=== PATIENT | female | born 1990 | race Caucasian/White ===

== ENCOUNTER 2018-08-09 21:34 | Emergency (ER) | payer OTHER, SELFPAY ==
[2018-08-09 21:49] VITALS: BP 121/86; PULSE 72; RESP 18; TEMP 36.6; O2SAT 100; BMI 29.2
--- NOTE | 2018-08-09 22:16 | ED_ITS ---
HPI - Pediatric GI General Chief Complaint: Abdominal Pain Stated Complaint: RIGHT SIDE ABD PAIN NAUSEA Time Seen by Provider: 08/09/18 22:16 Source: patient Mode of arrival: ambulatory Limitations: no limitations History of Present Illness HPI narrative: Patient is a 28 year old female. Several weeks ago she underwent a laparoscopic appendectomy for acute appendicitis this is performed at an outside hospital. She states that her right lower quadrant pain from that episode completely resolved. She had a follow-up with the general surgery service. She states that within the past couple days the right lower quadrant abdominal pain which brought her to the hospital that led to the diagnosis of appendicitis returned. She went to the same hospital were she had surgery earlier today where she had lab work drawn. She stated that they discuss repeating a CT scan however she felt uncomfortable with the provider that she was seeing because she stated that the provider told her that there was uncertainty as to whether not she actually had appendicitis. She did not get the CT scan performed at that facility. She was discharged home she came to this ER for further evaluation. Related Data Allergies Allergy/AdvReac Type Severity Reaction Status Date / Time No Known Drug Allergies Allergy Verified 08/09/18 21:54 Pediatric Review of Systems Constitutional: Denies fever Cardiovascular: Denies chest pain Gastrointestinal: Reports abdominal pain; Denies diarrhea and constipation Genitourinary: Denies dysuria Integumentary: Denies rash Neurological: Denies headache Hematological/Lymphatic: Denies easy bleeding and easy bruising PFSH Medical History Healthy adult (Acute) Surgical History Hx of appendectomy (Acute) Social History Smoking Status: Never smoker Pediatric Exam Initial Vital Signs Initial Vital Signs: Vital Signs Temperature 97.8 F 08/09/18 21:49 Pulse Rate 72 08/09/18 21:49 Respiratory Rate 18 08/09/18 21:49 Blood Pressure 121/86 08/09/18 21:49 Pulse Oximetry 100 08/09/18 21:49 General Limitations: no limitations General appearance: well-appearing, well-hydrated, well-nourished and ill- appearing Head Head exam: normocephalic and atraumatic Respiratory Respiratory exam: Present normal lung sounds bilaterally Cardiovascular Cardiovascular exam: Present regular rate and normal rhythm Abdominal Exam Abdominal exam: Present soft and tenderness; Absent distention Abdominal tenderness: Present RLQ Skin Skin exam: Present warm, dry and intact Expanded Skin Exam Type of lesion: Absent rash Course Orders Ordered: ED Orders 08/09/18 22:44 CT abdomen pelvis w con Stat 08/09/18 22:50 Complete Blood Count AUTO DIFF Stat Comprehensive Metabolic Panel Stat Lipase Stat Test Serum,Qual Stat Discontinued Medications Sodium Chloride (Normal Saline 0.9%) 1,000 mls @ 1,000 mls/hr IV BOLUS ONE Stop: 08/09/18 23:42 Last Infusion: 08/10/18 00:54 Dose: 0 mls/hr Admin: 08/09/18 23:48 Dose: 1,000 mls/hr Vital Signs - 8 hr 08/09/18 21:49 08/09/18 23:00 08/10/18 00:00 Temperature 97.8 F Pulse Rate 72 64 67 Respiratory Rate 18 13 18 Blood Pressure 121/86 Blood Pressure [Left Arm] 102/69 122/64 Pulse Oximetry 100 96 100 08/10/18 00:55 Temperature 96.4 F L Pulse Rate 65 Respiratory Rate 18 Blood Pressure 118/64 Blood Pressure [Left Arm] Pulse Oximetry 100 Medical Decision Making Medical Records Medical records reviewed: Yes I reviewed the patient's medical records. Lab Data Lab results reviewed: Yes I reviewed the patient's lab results. Result diagrams: 08/09/18 22:50 08/09/18 22:50 Lab Results 08/09/18 08/09/18 08/09/18 Range/Units 22:50 22:50 22:50 WBC 6.5 (4.5-11.0) X10^3/uL RBC 4.49 (4.0-5.2) X10^6/uL Hgb 12.9 (12.0-16.0) g/dL Hct 37.8 (36-46) % MCV 84.2 (80-100) fL MCH 28.7 (26-34) PG MCHC 34.2 (30-36) % RDW 13.0 (11.6-14.8) % Plt Count 271 (150-400) X10^3/uL Neut % (Auto) 47.8 L (50-75) % Lymph % (Auto) 42.4 H (25-40) % [place] % (Auto) 6.4 (3-14) % Eos % (Auto) 2.3 (2-4) % Baso % (Auto) 1.1 (0-2) % Neut # (Auto) 3100 (4873-5905) /uL Sodium 140 (137-145) mmol/L Potassium 3.9 (3.4-5.1) mmol/L Chloride 105 (98-107) mmol/L Carbon Dioxide 24 (22-32) mmol/L BUN 12 (7-17) mg/dL Creatinine 0.70 (0.52-1.04) mg/dL Estimated GFR > 60.0 (>60) mL/min BUN/Creatinine Ratio 17.1 (6-22) Glucose 89 (70-100) mg/dL Calcium 9.0 (8.4-10.2) mg/dL Total Bilirubin 0.8 (0.2-1.3) mg/dL AST 15 (14-36) IU/L ALT 23 (9-52) IU/L Alkaline Phosphatase 37 L (38-126) U/L Total Protein 7.4 (6.3-8.2) g/dL Albumin 4.2 (3.5-5.0) g/dL Globulin 3.2 (1.7-4.1) g/dL Albumin/Globulin Ratio 1.3 (1.0-2.8) Lipase 32 (23-300) U/L Serum , Qual Negative (Negative) Imaging Data CT scan - abdomen: Radiologist's impression: Prominent distal small bowel and colon contents. Mesenteric adenopathy, presumably reactive. No evidence of a significant degree of obstruction or suspicious fluid collection MDM Narrative Medical decision making narrative: Benign abdominal exam. CT scan shows no acute pathology except for mesenteric adenopathy. I was able to obtain the operative note from her appendectomy performed on July 22, 2018. It was recorded this note that visually the patient did have acute appendicitis. I did discuss this with the patient. We did discuss mesenteric adenopathy. There is no indication for antibiotics. No indication for further workup here in the emergency department. She was given return precautions. She expressed understanding and agreement with plan. Discharge Plan Departure Patient Disposition: Home Clinical Impression: Mesenteric adenitis Discharge Date/Time: 08/10/18 00:54 Interventions: ED Discharge Assessment Last Done: 08/10/18 00:55 Instructions: Acute Abdominal Pain Activity Restrictions/Additional Instructions: Findings on the CT scan do not require any antibiotics. Make sure your increasing your fluid intake. Follow up with her medical department. Return to the emergency department for any new or worsening symptoms Stand Alone Forms: Work Release Note
--- NOTE | 2018-08-09 22:44 | DI.CT.S_ITS ---
PROCEDURE: CT ABDOMEN PELVIS W CON INDICATIONS: Right-sided abdominal pain, 17 days post appendectomy TECHNIQUE: After the administration of intravenous contrast, 5 mm thick sections acquired from the diaphragm to the symphysis. 5 mm coronal and sagittal reformats were acquired. For radiation dose reduction, the following was used: automated exposure control, adjustment of mA and/or kV according to patient size. COMPARISON: None. FINDINGS: Image quality: Excellent. ABDOMEN: Lung bases: Lung bases are clear. Heart size is normal. Solid organs: Borderline elongated right hepatic liver lobe, measuring approximately 17.6 cm craniocaudal at the midclavicular line. Gallbladder is unremarkable. Biliary system is non dilated. Pancreas enhances normally. Spleen is normal in size and enhancement. No adrenal nodules. Kidneys demonstrate normal size and enhancement, without hydronephrosis. Peritoneum and bowel: Mildly prominent fluid filled distal small bowel loops, a nonspecific finding. Moderate stool burden throughout the colon. No evidence of small or large bowel obstruction. No free fluid or air. There are postsurgical changes of the cecum consistent with prior appendectomy. No right lower quadrant fluid collection or abscess is identified. Nodes and vessels: Mild mesentery and right lower quadrant adenopathy, which is nonspecific but likely reactive. Aorta and inferior vena cava are normal in size. Miscellaneous: No ventral hernias. PELVIS: Genitourinary: Bladder wall thickness is normal. An intrauterine device is identified within the expected location within the uterus. No abnormal adnexal masses are identified. There is mildly prominent bilateral pelvic vascularity. Miscellaneous: No inguinal hernias or adenopathy. Bones: No acute osseous abnormality. IMPRESSION: 1. Mildly prominent distal small bowel loops and moderate stool burden within the colon, without significant CT evidence of bowel obstruction. 2. Postsurgical changes consistent with prior appendectomy, without CT evidence of postsurgical abscess. Mild right lower quadrant and mesenteric lymphadenopathy is nonspecific but likely reactive. This report is concordant with the overnight [facility] radiology report of Dr. Arely Alfonso. Dictated by: Terrence Barrios M.D. on 08/10/2018 at 8:30 Approved by: Terrence Barrios M.D. on 08/10/2018 at 9:18
[2018-08-09 23:00] VITALS: BP 102/69; PULSE 64; RESP 13; O2SAT 96
[2018-08-09 23:01] LABS: Add Manual Diff / Slide Review NO; Basophils Percent Auto 1.1 % (0-2); Eosinophils Percent Auto 2.3 % (2-4); Hematocrit 37.8 % (36-46); Hemoglobin 12.9 g/dL (12.0-16.0); Lymphocytes Percent Auto 42.4 % (25-40); Mean Corpuscular HGB Conc 34.2 % (30-36); Mean Corpuscular Hemoglobin 28.7 PG (26-34); Mean Corpuscular Volume 84.2 fL (80-100); Monocytes Percent Auto 6.4 % (3-14); Neutrophils Absolute Auto 3100 /uL (1500-7000); Neutrophils Percent Auto 47.8 % (50-75); Platelet Count 271 X10^3/uL (150-400); Red Blood Cell Count 4.49 X10^6/uL (4.0-5.2); White Blood Cell Count 6.5 X10^3/uL (4.5-11.0)
[2018-08-09 23:07] LABS: Alanine Aminotransferase 23 IU/L (9-52); Albumin 4.2 g/dL (3.5-5.0); Albumin Globulin Ratio 1.3 (1.0-2.8); Alkaline Phosphatase 37 U/L (38-126); Aspartate Aminotransferase 15 IU/L (14-36); BUN Creatinine Ratio 17.1 (6-22); Bilirubin Total 0.8 mg/dL (0.2-1.3); Blood Urea Nitrogen 12 mg/dL (7-17); Carbon Dioxide 24 mmol/L (22-32); Chloride 105 mmol/L (98-107); Estimated Glomerular Filt Rate > 60.0 mL/min (>60); Globulin 3.2 g/dL (1.7-4.1); Glucose 89 mg/dL (70-100); HEMOLYSIS < 15 (0-50); Lipase 32 U/L (23-300); Potassium 3.9 mmol/L (3.4-5.1); Sodium 140 mmol/L (137-145); Total Protein 7.4 g/dL (6.3-8.2)
[2018-08-09 23:23] LABS: Pregnancy Test Serum,Qual Negative (Negative)
[2018-08-09] MEDS: SODIUM CHLORIDE 0.9% 1,000 ML 1000 ML IV (23:48)
[2018-08-10] VITALS: BP 122/64; PULSE 67; RESP 18; O2SAT 100
[2018-08-10 00:55] VITALS: BP 118/64; PULSE 65; RESP 18; TEMP 35.8; O2SAT 100
== END 2018-08-10 00:54 | disposition home or self-care (01) ==
PROVIDERS: Emergency Provider Emergency Medicine
DX: I88.0 Nonspecific mesenteric lymphadenitis (principal)
CPT/HCPCS: 36591; 74177; 80053; 83690; 84703; 85025; 96360; 99283; 99285; Q9967

== ENCOUNTER 2018-12-30 15:29 | Emergency (ER) | payer OTHER, SELFPAY ==
[2018-12-30 15:37] VITALS: BP 107/71; PULSE 56; RESP 14; TEMP 37; O2SAT 99; BMI 31.2
--- NOTE | 2018-12-30 15:41 | DI.RAD.S_ITS ---
PROCEDURE: XR FOOT LT MIN 3V INDICATIONS: pt dropped 45lb weight 1 week ago TECHNIQUE: 3 views of the foot were acquired. COMPARISON: None. FINDINGS: Bones: No fractures or dislocations. No suspicious bony lesions. Soft tissues: No tibiotalar joint effusion. Achilles tendon appears normal. IMPRESSION: No visualized acute fracture or dislocation. However, if clinical concern and/or pain persist, short interval imaging followup in 7-10 days is recommended, as occult injury cannot be definitively excluded. Dictated by: Ivet Haines M.D. on 12/30/2018 at 16:16 Approved by: Ivet Haines M.D. on 12/30/2018 at 16:17
--- NOTE | 2018-12-30 17:06 | ED.LOWEXIN ---
HPI - Extremity Injury (Lower) <EFREN Angel - Last Filed: 12/30/18 23:00> General Chief Complaint: Extremity Injury, Lower Stated Complaint: Dropped 45lb plate on left foot last week Time Seen by Provider: 12/30/18 16:28 Source: patient Mode of arrival: ambulatory Limitations: no limitations History of Present Illness HPI Narrative: A 28-year-old female with history of an appendectomy, complains of left foot pain and swelling after dropping a 45 lb weight on her foot a week ago. The pain is constant aching 4/10, worse with palpation and movement, better with rest. Associated bruising to top of foot. Patient denies previous injury to foot, I was able to bear weight after the incident. Denies chest pain, shortness of breath, abdominal pain, pain in calf, limited range of motion. MD complaint: foot injury Onset (ago): day(s) Type of Injury: blunt Place: other Severity: moderate Severity scale (1-10): 4 Relieving factors: rest Exacerbating factors: weight bearing, movement and palpation Context: direct blow Other symptoms: none Treatments prior to arrival: cold therapy Related Data Allergies Allergy/AdvReac Type Severity Reaction Status Date / Time No Known Drug Allergies Allergy Verified 12/30/18 15:37 Review of Systems <EFREN Angel - Last Filed: 12/30/18 23:00> Review of Systems REVIEW OF SYSTEMS: GENERAL: Denies fever or chills. HENT: No head trauma, hearing loss or sore throat. EYES: No loss of vision, double vision, eye pain, or irritation. CARDIOVASCULAR: No chest pain or syncope. RESPIRATORY: No shortness of breath or cough. GASTROINTESTINAL: No nausea, vomiting, diarrhea, or constipation. GENITOURINARY: No flank pain or dysuria. MUSCULOSKELETAL: See HPI. INTEGUMENTARY: No rash, lesions, or pruritus. NEURO: No numbness, tingling, memory loss, or confusion. PSYCH: No behavior or mood changes. PFSH <EFREN Angel - Last Filed: 12/30/18 23:00> Medical History Healthy adult (Acute) Surgical History Hx of appendectomy (Acute) Social History Smoking Status: Never smoker Social History Smoking Status: Never smoker Exam <EFREN Angel - Last Filed: 12/30/18 23:00> Initial Vital Signs Initial Vital Signs: Vital Signs Temperature 98.6 F 12/30/18 15:37 Pulse Rate 56 L 12/30/18 15:37 Respiratory Rate 14 12/30/18 15:37 Blood Pressure 107/71 12/30/18 15:37 Pulse Oximetry 99 12/30/18 15:37 PHYSICAL EXAMINATION: GENERAL: Well groomed, alert, and cooperative Answers questions promptly and appropriately. Vital signs noted. HENT: Normocephalic, atraumatic. Ear canals patent. Oral mucosa is pink and moist. EYES: PERRLA, EOMIs, conjunctiva pink, sclera white, no periorbital swelling. NECK: Full range of motion. CHEST: Normal to inspection and without deformities. CARDIOVASCULAR: S1 and S2 sounds normal. Regular rate and rhythm, no murmurs, clicks, or bruits. No pedal edema. RESPIRATORY: Normal respiratory rate, trachea midline, airway patent. No stridor, nasal flaring or accessory muscle use. Lungs are clear in all urena without wheeze, rhonchi, or crackles. GASTROINTESTINAL: Bowel sounds normoactive. Abdomen is soft and non-tender. No organomegaly. MUSCULOSKELETAL: Mild diffuse swelling to the top of foot with minor ecchymosis. Slight tenderness over top of foot in slight tenderness under the arch of the foot. Full range of motion of foot, strong pedal pulses bilaterally able to move all toes. Strength of ankle and foot was 5/5 with resistance. Normal gait and coordination. Equal tone and mass bilaterally. EXTREMITIES: CMS intact. Full range of motion and 5/5 strength to upper and lower extremities SKIN: Warm, dry, soft, appropriate color for ethnicity. No lesions, rashes, or wounds. NEURO: Alert and Oriented X 3. Good coordination. No ataxia, or sensory deficits, or cognitive issues. PSYCH: Appropriate affect and mood. <Jessi Ibarra MD - Last Filed: 01/03/19 07:08> Initial Vital Signs Initial Vital Signs: Vital Signs Temperature 98.6 F 12/30/18 15:37 Pulse Rate 56 L 12/30/18 15:37 Respiratory Rate 14 12/30/18 15:37 Blood Pressure 107/71 12/30/18 15:37 Pulse Oximetry 99 12/30/18 15:37 Course <EFREN Angel - Last Filed: 12/30/18 23:00> Orders Ordered: ED Orders 12/30/18 15:41 XR foot LT min 3V Stat Consultations Consultation #1: The patient was staffed with Dr. Ibarra whom agreed with plan of care. Vital Signs - 8 hr 12/30/18 15:37 Temperature 98.6 F Pulse Rate 56 L Respiratory Rate 14 Blood Pressure 107/71 Pulse Oximetry 99 <Jessi Ibarra MD - Last Filed: 01/03/19 07:08> Orders Ordered: ED Orders 12/30/18 15:41 XR foot LT min 3V Stat Vital Signs - 8 hr 12/30/18 15:37 Temperature 98.6 F Pulse Rate 56 L Respiratory Rate 14 Blood Pressure 107/71 Pulse Oximetry 99 MDM - Extremity Injury (Lower) <EFREN Angel - Last Filed: 12/30/18 23:00> Medical Records Attestation: I reviewed the patient's medical records. Lab Data Attestation: I reviewed the patient's lab results. Imaging Data Left Foot: Radiologist's impression: [place] [address] XRay Report Signed Patient: MICHAEL HUI BMR#: [id number] : 1990Acct:[id number] Age/Sex: 28 / FDate of Service: 12/30/18 Loc: ED Accession Number: [id number] Procedure: XR foot LT min 3V Ordering Provider: Jessi Ibarra MD PROCEDURE: XR FOOT LT MIN 3V INDICATIONS: pt dropped 45lb weight 1 week ago TECHNIQUE: 3 views of the foot were acquired. COMPARISON: None. FINDINGS: Bones: No fractures or dislocations. No suspicious bony lesions. Soft tissues: No tibiotalar joint effusion. Achilles tendon appears normal. IMPRESSION: No visualized acute fracture or dislocation. However, if clinical concern and/or pain persist, short interval imaging followup in 7-10 days is recommended, as occult injury cannot be definitively excluded. Dictated by: Ivet Haines M.D. on 12/30/2018 at 16:16 Approved by: Ivet Haines M.D. on 12/30/2018 at 16:17 MDM Narrative Medical decision making narrative: I suspect that her symptoms are caused from a contusion due to exam and x-ray showing no acute abnormalities. Follow-up instructions given and return precautions discussed. Discharge Plan Departure Patient Disposition: Home Clinical Impression: Contusion of foot, left Qualifiers: Encounter type: initial encounter Qualified Code(s): S90.32XA - Contusion of left foot, initial encounter Discharge Date/Time: 12/30/18 17:10 Interventions: ED Discharge Assessment Last Done: 12/30/18 17:10 Instructions: DI for Contusion, DI for Foot Pain Activity Restrictions/Additional Instructions: Thank you for entrusting me with your care today. As discussed, your x-ray did not show any fractures. I believe your pain and swelling is from a contusion, or bone bruise. You may use the ortho shoe to help with stabilization, take Tylenol and ibuprofen for pain, elevate the foot when possible, use an Eusebio bandage to reduce swelling when you have to stand your feet. Follow up with your primary care provider in a week if pain persists. Return if you developed chest pain, shortness of breath or redness and swelling in her calf. Stand Alone Forms: Work Release Note
== END 2018-12-30 17:10 | disposition home or self-care (01) ==
PROVIDERS: Emergency Provider Nurse Practitioner
DX: S90.32XA Contusion of left foot, initial encounter (principal); W20.8XXA Other cause of strike by thrown, projected or falling object, initial encounter
CPT/HCPCS: 29550; 73630; 99282; 99283

== ENCOUNTER 2019-02-20 13:47 | Emergency (ER) | payer OTHER, SELFPAY ==
[2019-02-20 13:53] VITALS: BP 117/78; PULSE 80; RESP 18; TEMP 36.9; O2SAT 100; BMI 31.2
[2019-02-20] MEDS: ONDANSETRON 4 MG ODT SL (15:15)
[2019-02-20] MEDS: KETOROLAC 60 MG/2 ML VIAL IM (15:16)
--- NOTE | 2019-02-20 15:45 | ED_ITS ---
HPI - Head Injury <EFREN Mayer - Last Filed: 02/20/19 17:15> General Chief complaint: Head Injury Stated complaint: left sided head pain/nausea today Time Seen by Provider: 02/20/19 14:21 Source: patient and family Mode of arrival: ambulatory Limitations: no limitations History of Present Illness HPI Narrative: The patient is 28 year old, non-smoker with history of migraine headache and appendectomy. She c/o headache above the L eyebrow after hitting by her 2 year old son's posterior head head around at 1230 when he was throwing himself backwards. She also reports L side neck muscle pain with movement but denies midcervical tenderness. She denies loss of consciousness, amnesia, vomiting, weakness or tingling to extremities, chest pain, or vision changes. She states states has a history of migraine headaches and occasionally requires a shot when the OTC medications are not effective. She does not taking anticoagulant/antiplatelet medications and denies recent head injury. MD Complaint: head injury Onset (ago): hour(s) (2) Place: home Loss of Consciousness: no Location of injury: frontal Severity: moderate Severity scale (1-10): 6 Quality: sharp Radiation: none Other Injuries: none Associated symptoms: denies other symptoms Related Data Home Medications Medication Instructions Recorded Confirmed phentermine 37.5 mg PO DAILY 02/20/19 02/20/19 tolterodine 02/20/19 Previous Rx's Medication Instructions Recorded ondansetron 4 mg PO Q8H PRN 4 Days #7 tab 02/20/19 Allergies Allergy/AdvReac Type Severity Reaction Status Date / Time No Known Drug Allergies Allergy Verified 02/20/19 13:58 Review of Systems <EFREN Mayer - Last Filed: 02/20/19 17:15> Review of Systems ROS Unobtainable: All systems reviewed & are unremarkable except as noted in HPI and below Constitutional Reports headache(s) and Denies weakness Eyes Reports as per HPI, Denies blurry vision, Denies change in vision, Denies loss of peripheral vision and Denies loss of vision ENT Ears, Nose, Mouth, and Throat: Reports dizziness, Denies ear discharge, Reports headache(s), Reports neck pain (L side neck muscle pain) and Denies sinus pain Comments: otorrhea Cardiovascular Reports system reviewed and no additional complaints, except as docu and Denies syncope Respiratory Reports system reviewed and no additional complaints, except as docu Gastrointestinal Gastrointestinal: Reports nausea Genitourinary Reports system reviewed and no additional complaints, except as docu Musculoskeletal Reports as per HPI, Denies limited range of motion, Denies muscle weakness, Reports neck pain (L side neck muscle pain), Denies numbness, Denies radiating pain into limb and Denies tingling Integumentary/Breasts Reports system reviewed and no additional complaints, except as docu Neurologic Reports as per HPI, Denies abnormal movements, Denies abnormal speech, Reports dizziness, Denies syncope, Reports headache(s), Denies loss of vision, Denies numbness, Denies other visual disturbances, Denies convulsions, Denies seizure- like activity, Denies sensory deficit, Denies tingling and Denies weakness Psychiatric Reports system reviewed and no additional complaints, except as docu Endocrine Reports system reviewed and no additional complaints, except [facility] Hematologic/Lymphatic Reports system reviewed and no additional complaints, except as docu Allergic/Immunologic Reports system reviewed and no additional complaints, except as docu PFSH <EFREN Mayer - Last Filed: 02/20/19 17:15> Medical History (Updated 02/20/19 @ 16:16 by EFREN Mayer) Migraine headache (Acute) Healthy adult (Acute) Surgical History Hx of appendectomy (Acute) Social History Smoking Status: Never smoker Social History Smoking Status: Never smoker Exam <EFREN Mayer - Last Filed: 02/20/19 17:15> Initial Vital Signs Initial Vital Signs: Vital Signs Temperature 98.5 F 02/20/19 13:53 Pulse Rate 80 02/20/19 13:53 Respiratory Rate 18 02/20/19 13:53 Blood Pressure 117/78 02/20/19 13:53 Pulse Oximetry 100 02/20/19 13:53 Const General: cooperative, well groomed and other (appears to be uncomfortable, resting in dark room with eyes closed) Nutritional Appearance: well nourished Orientation: alert, awake and oriented x3 [facility] Head: normal to inspection, normocephalic, No Jaramillo's sign, No raccoon eyes, No scalp lesion, No temporal artery tenderness, No periorbital ecchymosis and other Ears: external ears normal and TM normal on the right Nose: external nose normal and other (no rhinorrhea) Face and sinus: normal facial exam, sinuses nontender, face symmetric, no crepitus, no ecchymosis, no erythema, no edema, no lacerations, no sinus tenderness, tenderness and other (tenderness to palpate in L eyebrow) Mouth: oral mucosae normal and tongue normal (and in midline) Teeth and gingiva: dentition normal Throat: tonsils normal and uvula midline Eyes General: appearance normal, both eyes and all related structures Alignment and Position: alignment normal Periorbital: periorbital findings normal Conjunctivae: conjunctivae normal Sclera: sclerae normal Pupils: PERRL EOM: EOM intact bilaterally Direct ophthalmoscopy: normal light reflex and photophobia Neck Neck: normal visual inspection, trachea midline, supple and tender (L side paracervical muscle with palpation) Thyroid: no masses and nontender Chest Chest: normal palpation of entire chest wall and No tenderness Resp Effort & Inspection: normal respiratory effort, no audible wheezes, no cough, respiratory effort not decreased, not labored, no respiratory distress, no retractions, no stridor, no use of accessory muscles and symmetric chest movement Cardio Rate: regular rate Rhythm: regular rhythm Heart Sounds: S1 normal, S2 normal, no click, no gallops, no murmurs and no rubs Pulses: radial pulses present GI Inspection: non-distended Palpation: soft, No guarding, No mass, No rigid and No tender Auscultation: normal bowel sounds Back/Spine/Pelvis Cervical Spine: normal cervical lordosis, cervical ROM normal, cervical muscular tenderness, pain with cervical ROM and No cervical spasm Thoracic/Lumbar Spine: thoracic and lumbar spine normal to inspection and th oraco-lumbar ROM normal Skin General: no rashes or lesions noted (over visible areas) and warm Neuro General: alert, awake, oriented x3, moves all extremities and CN's II-XI intact bilaterally Cranial Nerves: EOM intact bilaterally, facial strength normal, tongue midline and able to elevate shoulders bilaterally Cognition: normal cognition Speech: speech normal Motor: muscle tone normal throughout Sensory Exam: no sensory deficits noted Extrem General: normal to inspection Psych Appearance: well kempt Mood: congruent mood Affect: normal affect Attitude: cooperative Thought Process: normal Thought Content: normal Judgment: judgment good <Logan Thompson DO - Last Filed: 02/20/19 17:17> Initial Vital Signs Initial Vital Signs: Vital Signs Temperature 98.5 F 02/20/19 13:53 Pulse Rate 80 02/20/19 13:53 Respiratory Rate 18 02/20/19 13:53 Blood Pressure 117/78 02/20/19 13:53 Pulse Oximetry 100 02/20/19 13:53 Course <Mikey DuránEFREN Torres - Last Filed: 02/20/19 17:15> Orders Ordered: Discontinued Medications Diphenhydramine HCl (Benadryl) 25 mg IM NOW ONE Stop: 02/20/19 16:21 Last Admin: 02/20/19 16:35 Dose: 25 mg Ketorolac Tromethamine (Toradol) 60 mg IM NOW ONE Stop: 02/20/19 14:55 Last Admin: 02/20/19 15:16 Dose: 60 mg Ondansetron HCl (Zofran Odt) 4 mg SL NOW ONE Stop: 02/20/19 14:55 Last Admin: 02/20/19 15:15 Dose: 4 mg Reevaluation(s) Reevaluation #1: The patient reports her headache and nausea improved so much and ready to go home Time: 16:10 Reevaluation #2: The spouse of the patient came out of the room for evaluation on the patient's lip swelling. The patient reports no dyspnea, tongue or throat swelling. Reports feels funny when she has an allergic reaction with eating pineapples. She reports mild itching and swelling which is on R upper lip about <1 cm in diameter. Lungs CTAB and no swelling to throat, tongue. The patient had both medications of Toradol and Zofran in the past w/o problems. Time: 16:23 Reevaluation #3: The patient's R upper lip nodule improved after the IM Benadryl. Time: 17:03 Vital Signs - 8 hr 02/20/19 13:53 Temperature 98.5 F Pulse Rate 80 Respiratory Rate 18 Blood Pressure 117/78 Pulse Oximetry 100 <Logan Thompson DO - Last Filed: 02/20/19 17:17> Orders Ordered: Discontinued Medications Diphenhydramine HCl (Benadryl) 25 mg IM NOW ONE Stop: 02/20/19 16:21 Last Admin: 02/20/19 16:35 Dose: 25 mg Ketorolac Tromethamine (Toradol) 60 mg IM NOW ONE Stop: 02/20/19 14:55 Last Admin: 02/20/19 15:16 Dose: 60 mg Ondansetron HCl (Zofran Odt) 4 mg SL NOW ONE Stop: 02/20/19 14:55 Last Admin: 02/20/19 15:15 Dose: 4 mg Vital Signs - 8 hr 02/20/19 13:53 Temperature 98.5 F Pulse Rate 80 Respiratory Rate 18 Blood Pressure 117/78 Pulse Oximetry 100 [facility] - Head Injury <EFREN Mayer - Last Filed: 02/20/19 17:15> Differential Diagnosis Differential diagnosis: Likely concussion without loss of consciousness and closed head injury Medical Records Attestation: I reviewed the patient's medical records. [facility] Narrative Medical decision making narrative: The patient's head injury risk was low per [facility] and head CT was not completed due to no loss of consciousness, no amnesia, no recent head injury, no vision change, no focal neurological deficit, not on any anticoagulants. Your headache, dizziness, nausea, photophobia are likely due to closed head injury which might have exacerbating migraine headache. The patient was treated with IM Ketolac and ODT Zofran which improved her headache significantly. The small nodule on R upper lip may be an allergic reaction but not certain. She had taken the same medications in the past without problems and denies new exposures. The patient was treated with IM Benadryl 25mg prior discharge to home. The nodule resolved shortly after the Benadryl. Discharge Plan Departure Patient Disposition: Home Clinical Impression: FH: migraine headache Closed head injury Qualifiers: Encounter type: initial encounter Qualified Code(s): S09.90XA - Unspecified injury of head, initial encounter Instructions: DI for Closed Head Injury Activity Restrictions/Additional Instructions: I am glad that your headache improved. Please use OTC Tylenol/Ibuprofen as needed for pain and Zofran as needed for nausea. Please rest your brain until headache improves and limit screening time. Please watch for worsening symptoms such as worsening headaches, recurring vomiting, vision change, behavioral change, seizure like activity, unable to waken up from sleep and return to ED. Otherwise, please follow up with your PCP in 2-3 days. Please have OTC Benadryl readily available if lip swelling or any other allergic reaction occurs and you could take additional H-2 blockers as well such as Zantac or Pepcid and avoid the triggers. Prescriptions: New ondansetron 4 mg tablet,disintegrating 4 mg PO Q8H PRN (Reason: nausea and vomiting) 4 Days Qty: 7 RF: 0 No Action phentermine 37.5 mg Tablet 37.5 mg PO DAILY RF: 0 tolterodine 4 mg capsule,extended release 24hr RF: 0 Referrals: [facility] [Outside] Stand Alone Forms: Work Release Note <Logan Thompson, DO - Last Filed: 02/20/19 17:17> Cosign ED Attending Cosgailature Attestation: I was immediately available in the department for consultation. Documentation has been reviewed. I agree with assessment and plan.
[2019-02-20] MEDS: diphenhydrAMINE 50 MG/ML VIAL 25 MG IM (16:35)
[2019-02-20 17:16] VITALS: BP 106/65; PULSE 56; RESP 12; O2SAT 99
== END 2019-02-20 17:18 | disposition home or self-care (01) ==
PROVIDERS: Emergency Provider Nurse Practitioner Family
DX: S09.90XA Unspecified injury of head, initial encounter (principal); W50.0XXA Accidental hit or strike by another person, initial encounter
CPT/HCPCS: 96372; 99282; 99283; J1200; J1885

== ENCOUNTER 2019-05-09 15:00 | Emergency (ER) | payer OTHER, SELFPAY ==
[2019-05-09 15:11] VITALS: BP 109/60; PULSE 79; RESP 20; TEMP 37.3; O2SAT 100
[2019-05-09 18:09] LABS: Bacteria Urine Occasional (0-1); RBC Urine 0-1/HPF (0-5/HPF); Squamous Epithelial Cell Urine 0-1 /HPF (0-5/HPF); WBC Urine 0-1/HPF (0-5/HPF)
[2019-05-09 18:10] LABS: Culture Indicated Urine Cult Not Indicated
--- NOTE | 2019-05-09 18:28 | DI.RAD.S_ITS ---
PROCEDURE: XR LUMBAR SPINE 2-3V INDICATIONS: back pain TECHNIQUE: 2 views of the lumbar spine were acquired. COMPARISON: None. FINDINGS: Bones: 5 [id number] vertebrae are present. There is normal bony alignment. No vertebral body compression fractures. No suspicious bony lesions. Soft tissues: Overlying bowel gas pattern is normal. No suspicious soft tissue calcifications. IMPRESSION: No compression fracture or spondylolisthesis in the lumbar spine. Dictated by: Ananda Patton M.D. on 05/09/2019 at 19:01 Approved by: Ananda Patton M.D. on 05/09/2019 at 19:01
[2019-05-09] MEDS: KETOROLAC 60 MG/2 ML VIAL IM (18:48)
[2019-05-09] MEDS: LIDOCAINE PATCH 1 EACH ADH..PATCH TOP (18:48)
[2019-05-09] MEDS: CYCLOBENZAPRINE 10 MG TABLET PO (18:48)
[2019-05-09 20:16] VITALS: BP 108/77; PULSE 72; RESP 16; O2SAT 99
--- NOTE | 2019-05-09 20:34 | ED_ITS ---
HPI - Back Pain/Injury <MAKENNA Gonzáles - Last Filed: 05/09/19 20:39> General Chief Complaint: Back Pain/Injury Stated Complaint: BACK PAIN LEFT SIDE HIP PAIN Time Seen by Provider: 05/09/19 17:32 Source: patient and family Mode of arrival: Ambulatory Limitations: no limitations History of Present Illness HPI Narrative: The patient is a 29-year-old female nonsmoker presents with her for chief complaint of back pain. She states she has a longstanding history of back pain, starting in 2017. She states she has been through for series of physical therapy for it. She denies any falls or trauma. She states she woke up this morning with lower back pain. She does have a history of UTIs, but denies any dysuria urgency or frequency at this time. She denies any incontinence of bowel, incontinence of bladder saddle anesthesia. She denies any numbness or tingling. She has taken 600 of ibuprofen for pain this morning, but has not taken anything else. She denies any history of cancer or fevers. She denies any IV drug use. Related Data Home Medications Medication Instructions Recorded Confirmed phentermine 37.5 mg PO DAILY 02/20/19 02/20/19 tolterodine 02/20/19 Previous Rx's Medication Instructions Recorded cyclobenzaprine 10 mg PO TID PRN #30 tab 05/09/19 ketorolac 10 mg PO TID PRN #15 tab 05/09/19 lidocaine 1 patch TOP DAILY #15 each 05/09/19 Allergies Allergy/AdvReac Type Severity Reaction Status Date / Time No Known Drug Allergies Allergy Verified 02/20/19 13:58 Review of Systems <MAKENNA Gonzáles - Last Filed: 05/09/19 20:39> Review of Systems Narrative: GENERAL: Denies chills, fatigue, malaise, fever, sweats. HEENT: Denies sinus pain, ear pain, sore throat, difficulty swallowing, dizziness. RESPIRATORY: Denies dyspnea, cough, wheezing, hemoptysis, sputum. CARDIOVASCULAR: Denies chest pain, palpitations, orthopnea, edema, GASTROINTESTINAL: Denies nausea, vomiting, abdominal pain, diarrhea, constipation, melena. : Denies dysuria, frequency, incontinence, hematuria, urinary retention. MUSCULOSKELETAL: See HPI SKIN: Denies rash, skin lesions, or other NEUROLOGIC: Denies weakness, headache, numbness, change in speech, confusion, seizures, incoordination. PSYCHIATRIC: No concerning psychosocial issues. 12 point review of systems is negative except for those stated above PFSH <LETICIA Gonzáles - Last Filed: 05/09/19 20:39> Medical History Healthy adult (Acute) Migraine headache (Acute) Surgical History Hx of appendectomy (Acute) Social History Smoking Status: Never smoker Social History Smoking Status: Never smoker Exam <LETICIA Gonzáles - Last Filed: 05/09/19 20:39> Narrative Exam Narrative: GENERAL: This is a well-nourished, well-developed patient, no acute distress HEAD: Atraumatic. Normocephalic. No temporal or scalp tenderness. EYES: Pupils equal round and reactive. Extraocular motions intact. No scleral icterus. No injection or drainage. ENT: Nose without bleeding, purulent drainage or septal hematoma. Throat without erythema, tonsillar hypertrophy or exudate. Uvula midline. Airway patent. NECK: Trachea midline. No JVD or lymphadenopathy. Supple, nontender, no meningeal signs. CARDIOVASCULAR: Regular rate and rhythm without murmurs, gallops, or rubs. RESPIRATORY: Clear to auscultation. Breath sounds equal bilaterally. No wheezes, rales, or rhonchi. GASTROINTESTINAL: Abdomen soft, non-tender, nondistended. No hepato- splenomegaly, or palpable masses. No guarding. EXTREMITIES: No clubbing, cyanosis, or edema. No joint tenderness, effusion, or edema noted. BACK: No pain to cervical or thoracic palpation. Pain to palpation of lumbar spine. Patient pain to palpation bilateral paraspinal muscles lumbar area. NEURO: AOx3. Strength is equal upper and lower extremities bilaterally. Stable gait. SKIN: No rash or erythema. Initial Vital Signs Initial Vital Signs: Vital Signs Temperature 99.1 F 05/09/19 15:11 Pulse Rate 79 05/09/19 15:11 Respiratory Rate 20 05/09/19 15:11 Blood Pressure 109/60 05/09/19 15:11 Pulse Oximetry 100 05/09/19 15:11 <Eleuterio Terry DO - Last Filed: 05/09/19 21:30> Initial Vital Signs Initial Vital Signs: Vital Signs Temperature 99.1 F 05/09/19 15:11 Pulse Rate 79 05/09/19 15:11 Respiratory Rate 20 05/09/19 15:11 Blood Pressure 109/60 05/09/19 15:11 Pulse Oximetry 100 05/09/19 15:11 Course <MAKENNA GonzálesBC - Last Filed: 05/09/19 20:39> Orders Ordered: ED Orders 05/09/19 17:52 Urine Microscopic Stat 05/09/19 18:28 XR lumbar spine 2-3V Stat Discontinued Medications Cyclobenzaprine HCl (Flexeril) 10 mg PO NOW ONE Stop: 05/09/19 18:29 Last Admin: 05/09/19 18:48 Dose: 10 mg Documented by: SHERLYN Ketorolac Tromethamine (Toradol) 60 mg IM NOW ONE Stop: 05/09/19 18:29 Last Admin: 05/09/19 18:48 Dose: 60 mg Documented by: SHERLYN Lidocaine (Lidoderm) 1 each TOP NOW ONE Stop: 05/09/19 18:29 Last Admin: 05/09/19 18:48 Dose: 1 each Documented by: SHERLYN Vital Signs Vital signs: Vital Signs - 8 hr 05/09/19 15:11 05/09/19 20:16 Temperature 99.1 F Pulse Rate 79 72 Respiratory Rate 20 16 Blood Pressure 109/60 108/77 Pulse Oximetry 100 99 <Eleuterio Terry DO - Last Filed: 05/09/19 21:30> Orders Ordered: ED Orders 05/09/19 17:52 Urine Microscopic Stat 05/09/19 18:28 XR lumbar spine 2-3V Stat Discontinued Medications Cyclobenzaprine HCl (Flexeril) 10 mg PO NOW ONE Stop: 05/09/19 18:29 Last Admin: 05/09/19 18:48 Dose: 10 mg Documented by: SHERLYN Ketorolac Tromethamine (Toradol) 60 mg IM NOW ONE Stop: 05/09/19 18:29 Last Admin: 05/09/19 18:48 Dose: 60 mg Documented by: SHERLYN Lidocaine (Lidoderm) 1 each TOP NOW ONE Stop: 05/09/19 18:29 Last Admin: 05/09/19 18:48 Dose: 1 each Documented by: SHERLYN Vital Signs Vital signs: Vital Signs - 8 hr 05/09/19 15:11 05/09/19 20:16 Temperature 99.1 F Pulse Rate 79 72 Respiratory Rate 20 16 Blood Pressure 109/60 108/77 Pulse Oximetry 100 99 MDM - Back Pain/Injury <LETICIA Gonzáles - Last Filed: 05/09/19 20:39> Lab Data Labs: Lab Results 05/09/19 Range/Units 17:52 Urine RBC 0-1/hpf (0-5/HPF) Urine WBC 0-1/hpf (0-5/HPF) Ur Squamous Epith Cells 0-1 /hpf (0-5/HPF) Urine Bacteria Occasional (0-1) (None) Ur Culture Indicated? Cult not indicated Point of Care Testing Test Results Negative Urine Dip Bedside Urine Glucose Negative Bedside Urine Bilirubin - Negative Bedside Urine Ketone - Negative Urine Specific [place] 1.010 Bedside Urine Occult Blood - Negative Bedside Urine pH 6.0 Bedside Urine Protein - Negative Bedside Urine Urobilinogen - Negative Bedside Urine Nitrite - Negative Bedside Urine Leukocytes + 70 Esterase Imaging Data Lumbar x-ray: Radiologist's impression: MICHAEL HUI 29 F 1990 [place] [address] XRay Report Signed Patient: MICHAEL HUI BMR#: [id number] : 1990Acct:[id number] Age/Sex: 29 / FDate of Service: 05/09/19 Loc: ED Accession Number: [id number] Procedure: XR lumbar spine 2-3V Ordering Provider: Tamra Harris PROCEDURE: XR LUMBAR SPINE 2-3V INDICATIONS: back pain TECHNIQUE: 2 views of the lumbar spine were acquired. COMPARISON: None. FINDINGS: Bones: 5 [id number] vertebrae are present. There is normal bony alignment. No vertebral body compression fractures. No suspicious bony lesions. Soft tissues: Overlying bowel gas pattern is normal. No suspicious soft tissue calcifications. IMPRESSION: No compression fracture or spondylolisthesis in the lumbar spine. Dictated by: Ananda Patton M.D. on 05/09/2019 at 19:01 Approved by: Ananda Patotn M.D. on 05/09/2019 at 19:01 [facility] Narrative Medical decision making narrative: The patient is a 29-year-old female who presents with a chief complaint of lower back pain. She states she has a history of back pain, extending back several years. However she woke up today it was worse. She has no red flag symptoms of incontinence bowel, incontinence of bladder saddle anesthesia, helping rule out cauda equina. A urinalysis was done to help rule out urinary tract infection. I did give her Toradol, lidocaine and Flexeril in the emergency department which provided some relief. X-rays were obtained in order to help rule out any compression fractures or underlying etiology. The patient did not want any narcotics in the emergency department did not want any prescriptions of narcotics, which is acceptable as I would like to avoid the use of opiates to help control chronic pain in the emergency department. I discussed at length follow up with her primary care provider is very important especially since she has had back pain since 2017. She may need further imaging through primary care in the future. I discussed at length coming back to the emergency department for any red flag symptoms such as incontinence of bowel, incontinence of bladder saddle anesthesia. She states understanding. I discussed not combining the Toradol with any other NSAIDs such as ibuprofen or Aleve. Patient has no questions or concerns upon discharge and states understanding of return precautions as well as follow-up care. <Eleuterio Terry, - Last Filed: 05/09/19 21:30> Lab Data Labs: Lab Results 05/09/19 Range/Units 17:52 Urine RBC 0-1/hpf (0-5/HPF) Urine WBC 0-1/hpf (0-5/HPF) Ur Squamous Epith Cells 0-1 /hpf (0-5/HPF) Urine Bacteria Occasional (0-1) (None) Ur Culture Indicated? Cult not indicated Point of Care Testing Test Results Negative Urine Dip Bedside Urine Glucose Negative Bedside Urine Bilirubin - Negative Bedside Urine Ketone - Negative Urine Specific [place] 1.010 Bedside Urine Occult Blood - Negative Bedside Urine pH 6.0 Bedside Urine Protein - Negative Bedside Urine Urobilinogen - Negative Bedside Urine Nitrite - Negative Bedside Urine Leukocytes + 70 Esterase Discharge Plan Departure Patient Disposition: Home Clinical Impression: Lumbar back pain Strain of lumbar region Qualifiers: Encounter type: initial encounter Qualified Code(s): S39.012A - Strain of muscle, fascia and tendon of lower back, initial encounter Discharge Date/Time: 05/09/19 20:20 Instructions: DI for Low Back Pain, DI for Back Spasm, DI for Back Strain or Sprain Activity Restrictions/Additional Instructions: Please follow up with primary care provider in the next few days. Please come back to the emergency department for any acute concerns such as chest pain, shortness of breath, incontinence of bowel incontinence of bladder or saddle anesthesia. Given your longstanding back pain, you may benefit from further imaging beyond x-ray. Your x-ray shows no acute fractures. Your urine shows no signs of infection in the emergency department. Please come back to emergency department for any acute concerns. Please follow up with primary care provider. Your the Flexeril can be sedating. Please do not combine the ketorolac with any other NSAIDs such as ibuprofen or Aleve. Prescriptions: New cyclobenzaprine 10 mg tablet 10 mg PO TID PRN (Reason: muscle spasm) Qty: 30 RF: 0 lidocaine 5 % adhesive patch,medicated 1 patch TOP DAILY Qty: 15 RF: 0 ketorolac 10 mg tablet 10 mg PO TID PRN (Reason: pain) Qty: 15 RF: 0 No Action phentermine 37.5 mg Tablet 37.5 mg PO DAILY RF: 0 tolterodine 4 mg capsule,extended release 24hr RF: 0 Referrals: [facility] [Provider Group] Stand Alone Forms: Work Release Note <Eleuterio Terry DO - Last Filed: 05/09/19 21:30> Sign Out Provider Sign Out Attestation: I was available for consultation during this patient's emergency department visit. This chart is signed by myself for administrative purposes only. I did not have direct contact with this patient during this visit. They were seen independently by the APC.
== END 2019-05-09 20:20 | disposition home or self-care (01) ==
PROVIDERS: Emergency Provider Nurse Practitioner Family
DX: S39.012A Strain of muscle, fascia and tendon of lower back, initial encounter (principal)
CPT/HCPCS: 72100; 81003; 81015; 81025; 96372; 99282; 99284; J1885

== ENCOUNTER 2019-07-25 03:57 | Emergency (ER) | payer OTHER, SELFPAY ==
[2019-07-25 04:00] VITALS: BP 92/65; PULSE 91; RESP 16; TEMP 37; O2SAT 99; BMI 28.3
[2019-07-25] MEDS: ALBUTEROL/IPRATROPIUM 3 ML AMPUL INH (04:11)
--- NOTE | 2019-07-25 04:11 | ED.URI ---
HPI - URI/Sore Throat General Chief Complaint: Upper Respiratory Symptoms Stated Complaint: cough Time Seen by Provider: 07/25/19 04:03 Source: patient Mode of arrival: Ambulatory Limitations: no limitations History of Present Illness HPI Narrative: 29-year-old female here for evaluation of a cough. She states that her cough has been going on for the past week but worsened last evening. She states she has not been able to sleep because the cough. Has had some sore throat but no sinus congestion. No ear pain. No fevers. It is a nonproductive cough. She states that last evening she did clean the bathroom and potentially thought that the cleaning solution that she was using made her symptoms worse. No chest pain. Related Data Home Medications Medication Instructions Recorded Confirmed phentermine 37.5 mg PO DAILY 02/20/19 02/20/19 tolterodine 02/20/19 Previous Rx's Medication Instructions Recorded cyclobenzaprine 10 mg PO TID PRN #30 tab 05/09/19 ketorolac 10 mg PO TID PRN #15 tab 05/09/19 lidocaine 1 patch TOP DAILY #15 each 05/09/19 benzonatate [Tessalon Perles] 100 mg PO TID PRN #12 cap 07/25/19 codeine-guaifenesin [Guaifenesin 10 ml PO Q4-6H PRN #237 ml 07/25/19 AC] Allergies Allergy/AdvReac Type Severity Reaction Status Date / Time No Known Drug Allergies Allergy Verified 02/20/19 13:58 Review of Systems Constitutional Constitutional: Denies fever(s) Cardiovascular Cardiovascular: Denies chest pain Respiratory Respiratory: Reports cough and Denies wheezing Gastrointestinal Gastrointestinal: Denies abdominal pain, Denies nausea and Denies vomiting Integumentary/Breasts Skin/Breast: Denies lesions and Denies rash Neurologic Neurologic: Denies behavioral changes Psychiatric Psychiatric: Denies behavioral changes Allergic/Immunologic Allergic/Immunologic: Denies wheezing Patient History Medical History Healthy adult (Acute) Migraine headache (Acute) Social History Smoking Status: Never smoker Smoking Status: Never smoker alcohol intake frequency: 0-2 drinks per day Substance Use Type: does not use Exam Initial Vital Signs Initial Vital Signs: Vital Signs Temperature 98.6 F 12/23/19 04:00 Pulse Rate 91 H 07/25/19 04:00 Respiratory Rate 16 07/25/19 04:00 Blood Pressure 92/65 07/25/19 04:00 Pulse Oximetry 99 07/25/19 04:00 Const General: cooperative, healthy appearing, comfortable and well developed Orientation: alert, awake and oriented x3 HENMT Head: normal to inspection and normocephalic Ears: TM's normal bilaterally Mouth: moist mucous membranes Throat: posterior oropharynx normal Neck Lymphatic: No lymphadenopathy Resp Effort & Inspection: normal respiratory effort and cough Auscultation: clear to auscultation bilaterally Cardio Rate: regular rate Rhythm: regular rhythm Skin Lesions: no lesions Rashes: no rashes Neuro General: alert and awake Cognition: normal cognition Speech: speech normal Extrem General: normal to inspection and capillary refill normal Psych Appearance: grossly normal and well kempt Course Orders Ordered: ED Orders 07/25/19 04:23 XR chest 1V Stat Discontinued Medications Albuterol/Ipratropium (Duoneb) 3 ml INH NOW ONE Stop: 07/25/19 04:07 Last Admin: 07/25/19 04:11 Dose: 3 ml Documented by: EARL Benzocaine (Dermoplast [place]) 1 spray TOP NOW ONE Stop: 07/25/19 04:34 Lidocaine HCl (Xylocaine 2% (Pf)) 3.94521 ml 0.05 ml/kg (3.92165 ml) INH NOW ONE Stop: 07/25/19 04:25 Last Admin: 07/25/19 04:50 Dose: 3.2 ml Documented by: ESTEFANY Vital Signs Vital signs: Vital Signs - 8 hr 07/25/19 04:00 07/25/19 04:13 07/25/19 04:54 Temperature 98.6 F Pulse Rate 91 H 83 91 H Respiratory Rate 16 16 16 Blood Pressure 92/65 Blood Pressure [Left Arm] Pulse Oximetry 99 99 99 07/25/19 05:01 Temperature Pulse Rate 90 Respiratory Rate Blood Pressure Blood Pressure [Left Arm] 109/68 Pulse Oximetry 98 MDM - URI/Sore Throat Imaging Data Chest x-ray: Attestation: I personally reviewed and interpreted this imaging study as follows: My impression: No pneumonia, no pneumothorax, normal size heart MDM Narrative Medical decision making narrative: Patient is afebrile. Lungs are clear. Was given a DuoNeb upon arrival without any improvement of her symptoms. Chest x-ray shows no pneumonia. We then nebulized some lidocaine which potentially help her symptoms somewhat. I do suspect that this is and irritation. No indication for antibiotics. I suspect that she has had a call from her recent URI symptoms and then potentially made worse by the chemical solution she was using last evening. Will send home with symptom treatment. She was given return precautions and follow-up instructions. She expressed understanding and agreement with plan. Discharge Plan Departure Patient Disposition: Home Clinical Impression: Cough Instructions: Cough (Alternative Therapy), Cough Activity Restrictions/Additional Instructions: Use the medications as directed. Contact your primary provider for follow-up. Return to the emergency department for any new or worsening symptoms Prescriptions: New benzonatate [Tessalon Perles] 100 mg capsule 100 mg PO TID PRN (Reason: cough) Qty: 12 RF: 0 codeine-guaifenesin [Guaifenesin AC] 10-100 mg/5 mL liquid 10 ml PO Q4-6H PRN (Reason: cough) Qty: 237 RF: 0 No Action cyclobenzaprine 10 mg tablet 10 mg PO TID PRN (Reason: muscle spasm) Qty: 30 RF: 0 lidocaine 5 % adhesive patch,medicated 1 patch TOP DAILY Qty: 15 RF: 0 ketorolac 10 mg tablet 10 mg PO TID PRN (Reason: pain) Qty: 15 RF: 0 phentermine 37.5 mg Tablet 37.5 mg PO DAILY RF: 0 tolterodine 4 mg capsule,extended release 24hr RF: 0
[2019-07-25 04:13] VITALS: PULSE 83; RESP 16; O2SAT 99
--- NOTE | 2019-07-25 04:23 | DI.RAD.S_ITS ---
PROCEDURE: XR CHEST 1V INDICATIONS: cough, eval for pneumonia TECHNIQUE: One view of the chest was acquired. COMPARISON: None. FINDINGS: Surgical changes and devices: None. Lungs and pleura: Lungs are clear. No pleural effusions or pneumothorax. Mediastinum: Mediastinal contours appear normal. Heart size is normal. Bones and chest wall: No suspicious bony lesions. Overlying soft tissues appear unremarkable. IMPRESSION: No acute cardiopulmonary disease process. Dictated by: Lili Linares MD, PhD on 07/25/2019 at 8:57 Approved by: Liil Linares MD, PhD on 07/25/2019 at 8:57
[2019-07-25] MEDS: LIDOCAINE 2% INJ SDV 3.28855 ML INH (04:50)
[2019-07-25 04:54] VITALS: PULSE 91; RESP 16; O2SAT 99
[2019-07-25 05:01] VITALS: BP 109/68; PULSE 90; O2SAT 98
== END 2019-07-25 05:30 | disposition home or self-care (01) ==
PROVIDERS: Emergency Provider Emergency Medicine
DX: R05 Cough (principal)
CPT/HCPCS: 71045; 94640; 99281; 99283

== ENCOUNTER 2020-06-25 21:39 | Emergency (ER) | payer OTHER, SELFPAY ==
--- NOTE | 2020-06-25 21:45 | ED.FEMALEGU ---
HPI - Female Genitourinary General Chief complaint: Urogenital-Female Stated complaint: UTI Time Seen by Provider: 06/25/20 21:44 Source: patient Mode of arrival: Ambulatory Limitations: no limitations History of Present Illness HPI Narrative: 30-year-old female nonsmoker with noncontributory medical history presents with a chief complaint of a few days of urinary frequency, urgency and dysuria. Additionally, she complains of some suprapubic tenderness, mild low back pain and some vaginal discharge. She denies systemic findings such as fever, chills nor nausea or vomiting. She just returned from deployment states her flew in to see her, they were sexually active in her symptoms started thereafter. MD Complaint: dysuria, UTI, vaginal discharge and pelvic pain Onset (ago): day(s) Location: suprapubic Severity: mild Quality: Aching Duration: constant Exacerbating factors: urination and movement Urinary symptoms: Difficulty Urinating, Dysuria, Frequency and Urgency Vaginal discharge: yellow Patient : No Associated symptoms: denies other symptoms Related Data Home Medications Medication Instructions Recorded Confirmed phentermine 37.5 mg PO DAILY 02/20/19 02/20/19 tolterodine 02/20/19 Previous Rx's Medication Instructions Recorded cyclobenzaprine 10 mg PO TID PRN #30 tab 05/09/19 ketorolac 10 mg PO TID PRN #15 tab 05/09/19 lidocaine 1 patch TOP DAILY #15 each 05/09/19 benzonatate [Tessalon Perles] 100 mg PO TID PRN #12 cap 07/25/19 codeine-guaifenesin [Guaifenesin 10 ml PO Q4-6H PRN #237 ml 07/25/19 AC] doxycycline hyclate 100 mg PO BID #20 tab 06/25/20 doxycycline hyclate 100 mg PO BID 14 Days #28 tab 06/25/20 metronidazole 500 mg PO BID 14 Days #28 tab 06/25/20 Allergies Allergy/AdvReac Type Severity Reaction Status Date / Time No Known Drug Allergies Allergy Verified 06/25/20 21:52 Review of Systems Constitutional Constitutional: Denies chills, Denies fatigue, Denies fever(s), Denies frequent falls, Denies lethargy and Denies weakness Eyes Eyes: Denies change in vision, Denies eye discharge, Denies irritation and Denies loss of vision ENT Ears, Nose, Mouth, and Throat: Denies change in voice, Denies dizziness, Denies neck pain, Denies sore throat and Denies throat swelling Cardiovascular Cardiovascular: Denies chest pain, Denies irregular heart rhythm, Denies lightheadedness, Denies palpitations, Denies dyspnea, Denies dyspnea on exertion and Denies orthopnea Respiratory Respiratory: Denies cough, Denies dyspnea, Denies dyspnea on exertion and Denies wheezing Gastrointestinal Gastrointestinal: Denies abdominal pain, Denies change in bowel habits, Denies diarrhea, Denies nausea and Denies vomiting Genitourinary Genitourinary: Reports dysuria and Reports dysuria Genitourinary: Reports dysuria, Reports dysuria, Reports pelvic pain and Reports vaginal discharge Musculoskeletal Musculoskeletal: Denies neck pain and Denies numbness Integumentary/Breasts Skin/Breast: Denies pruritus, Denies erythema, Denies rash and Denies wounds Neurologic Neurologic: Denies behavioral changes, Denies confusion, Denies dizziness, Denies frequent falls, Denies loss of vision, Denies numbness and Denies weakness Psychiatric Psychiatric: Denies anxiety, Denies behavioral changes, Denies confusion, Denies depression, Denies homicidal ideation and Denies suicidal ideation Endocrine Endocrine: Denies fatigue, Denies flushing and Denies palpitations Hematologic/Lymphatic Hematologic/Lymphatic: Denies easy bruising Allergic/Immunologic Allergic/Immunologic: Denies urticaria, Denies throat swelling and Denies wheezing Patient History Medical History Healthy adult Migraine headache Surgical History Hx of appendectomy alcohol intake frequency: 0-2 drinks per day Substance Use Type: does not use Exam Narrative Exam Narrative: GENERAL: [30] year old patient appears stated age. Well-nourished, well-developed patient, in mild distress. HEAD: Atraumatic. Normocephalic. EYES: Pupils equal round and reactive. Extraocular motions intact. No scleral icterus. No injection or drainage. ENT: Nose without bleeding, purulent drainage. Throat without erythema, tonsillar hypertrophy or exudate. Airway patent. NECK: Trachea midline. Non tender CARDIOVASCULAR: Regular rate and rhythm without murmurs, gallops, or rubs. RESPIRATORY: Clear to auscultation. Breath sounds equal bilaterally. No wheezes, rales, or rhonchi. GASTROINTESTINAL: Abdomen soft, mild suprapubic tenderness, nondistended. PELVIC: Mild yellowish discharge, erythematous cervix. No pain by manual exam. This was performed female nursing research support specialist at the bedside and the patient's permission. EXTREMITIES: No edema or joint tenderness. BACK: Nontender without deformity or crepitance. No flank tenderness. NEURO: AOx3. SKIN: No rash or erythema of visible areas Initial Vital Signs Initial Vital Signs: Vital Signs Temperature 98.2 F 06/25/20 21:50 Pulse Rate 73 06/25/20 21:50 Respiratory Rate 16 06/25/20 21:50 Blood Pressure 136/63 06/25/20 21:50 Pulse Oximetry 100 06/25/20 21:50 Course Orders Ordered: ED Orders 06/25/20 23:14 Chlamydia Gonorrhea PCR -URINE Stat 06/25/20 23:24 Genital Culture Stat Wet Prep Tric BV Nikki Stat Discontinued Medications Ceftriaxone Sodium (Ceftriaxone 1,000 Mg Vial) 250 mg IM NOW ONE Stop: 06/25/20 23:27 Last Admin: 06/25/20 23:55 Dose: 250 mg Documented by: JOEL Vital Signs Vital signs: Vital Signs - 8 hr 06/25/20 21:50 06/26/20 00:26 Temperature 98.2 F Pulse Rate 73 69 Respiratory Rate 16 16 Blood Pressure 136/63 109/64 Pulse Oximetry 100 99 MDM - Female Genitourinary Lab Data Labs: Lab Results 06/25/20 Range/Units 23:14 Ur Chlamydia DNA (PCR) Not detected N gonorrhoeae DNA (PCR) Not detected Point of Care Testing Test Results Negative Urine Dip Bedside Urine Glucose Negative Bedside Urine Bilirubin - Negative Bedside Urine Ketone - Negative Urine Specific [place] 1.010 Bedside Urine Occult Blood - Negative Bedside Urine pH 6.0 Bedside Urine Protein - Negative Bedside Urine Urobilinogen - Negative Bedside Urine Nitrite - Negative Bedside Urine Leukocytes - Negative Esterase Discharge Plan Departure Patient Disposition: Home Clinical Impression: Acute pelvic inflammatory disease (PID) Instructions: DI for Pelvic Inflammatory Disease (PID) Activity Restrictions/Additional Instructions: *You have been diagnosed with [pelvic pain and discharge, likely due to pelvic inflammatory disease.] *What to do: *Take medications as directed: Take prescription antibiotics as prescribed, they have been electronically transmitted to [facility] in [place] *Follow up with your primary care provider in 2-3 days, call for an appointment. Let them know you were seen in the Emergency Department and that we ask that you be seen in follow up *Return to ER if you should have any new, worsening or concerning symptoms, such as [fever greater than 101, shaking chills, worsening pain or other bothersome symptoms * no sexual intercourse during treatment, notify sexual partners that they will need to be evaluated and likely treated] Prescriptions: New metronidazole 500 mg tablet 500 mg PO BID 14 Days Qty: 28 RF: 0 doxycycline hyclate 100 mg tablet 100 mg PO BID Qty: 20 RF: 0 doxycycline hyclate 100 mg tablet 100 mg PO BID 14 Days Qty: 28 RF: 0 No Action cyclobenzaprine 10 mg tablet 10 mg PO TID PRN (Reason: muscle spasm) Qty: 30 RF: 0 lidocaine 5 % adhesive patch,medicated 1 patch TOP DAILY Qty: 15 RF: 0 ketorolac 10 mg tablet 10 mg PO TID PRN (Reason: pain) Qty: 15 RF: 0 benzonatate [Tessalon Perles] 100 mg capsule 100 mg PO TID PRN (Reason: cough) Qty: 12 RF: 0 codeine-guaifenesin [Guaifenesin AC] 10-100 mg/5 mL liquid 10 ml PO Q4-6H PRN (Reason: cough) Qty: 237 RF: 0 phentermine 37.5 mg Tablet 37.5 mg PO DAILY RF: 0 tolterodine 4 mg capsule,extended release 24hr RF: 0 Stand Alone Forms: Work Release Note
[2020-06-25 21:50] VITALS: BP 136/63; PULSE 73; RESP 16; TEMP 36.8; O2SAT 100; BMI 29.2
--- NOTE | 2020-06-25 23:40 | PC.NURSE ---
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
[2020-06-25] MEDS: cefTRIAXone 1,000 MG VIAL 250 MG IM (23:55)
[2020-06-25] MEDS: LIDOCAINE 1% (PF) 2 ML (23:55)
[2020-06-26 00:26] VITALS: BP 109/64; PULSE 69; RESP 16; O2SAT 99
[2020-06-26 00:51] LABS: Urine N gonorrhoeae NOT DETECTED
[2020-06-26 01:00] LABS: Urine Chlamydia NOT DETECTED
--- NOTE | 2020-06-29 15:59 | PC.NURSE ---
Spoke to patient over the phone after she called regarding pelvic culture results. Advised by Dr Styles cultures negative but pt should continue taking prescribed ABX and follow up with her OB or PCP if sx persist.
== END 2020-06-26 00:26 | disposition home or self-care (01) ==
PROVIDERS: Emergency Provider Emergency Medicine
DX: N73.9 Female pelvic inflammatory disease, unspecified (principal); M54.5 Low back pain; R10.2 Pelvic and perineal pain; R30.0 Dysuria
CPT/HCPCS: 81003; 81025; 87070; 87205; 87210; 87252; 87491; 87591; 96372; 99282; 99283; STOP; J0696

== ENCOUNTER 2020-10-27 19:41 | Emergency (ER) | payer OTHER, SELFPAY ==
[2020-10-27] VITALS (7 sets, daily range): BP systolic 119–131; BP diastolic 74–93; PULSE 50–92; RESP 14–16; TEMP 36.6–36.7; O2SAT 98–100; BMI 27.1
--- NOTE | 2020-10-27 21:33 | DI.CT.S_ITS ---
PROCEDURE: CT ABDOMEN PELVIS W CON INDICATIONS: LLQ pain with diarrhea, 30lb wt loss in last month TECHNIQUE: After the administration of intravenous contrast, 5 mm thick sections acquired from the diaphragm to the symphysis. 5 mm coronal and sagittal reformats were acquired. For radiation dose reduction, the following was used: automated exposure control, adjustment of mA and/or kV according to patient size. COMPARISON: [facility], CT, CT ABDOMEN RENAL PROTOCOL, 03/18/2019, 14:05. [facility], CT, CT ABDOMEN PELVIS W CON, 08/09/2018, 22:47. FINDINGS: Image quality: Excellent. ABDOMEN: Lung bases: Lung bases are clear. Heart size is normal. Solid organs: Liver is normal in size and enhancement. Gallbladder is partially decompressed at the time of this study. Biliary system is non dilated. Pancreas enhances normally. Spleen is normal in size and enhancement. No adrenal nodules. Kidneys demonstrate normal size and enhancement, without hydronephrosis. Peritoneum and bowel: In this patient with this given history, scrutiny is given to the distal colon. The distal colonic wall does not appear abnormally thickened. Bowel loops demonstrate normal wall thickness and caliber. No free fluid or air. Prior appendectomy. Nodes and vessels: No retroperitoneal or mesenteric adenopathy by size criteria. Aorta and inferior vena cava are normal in size. Miscellaneous: No ventral hernias. PELVIS: Genitourinary: Bladder wall thickness is normal. A presumed contraceptive ring can be seen within the vaginal apex. The previously seen IUD has been removed. Miscellaneous: No inguinal hernias or adenopathy. Bones: There is a sclerotic focus seen involving the right proximal femur, as on series 4, image 30. No vertebral body compression fractures. IMPRESSION: No imaging explanation is found for this patient's presenting symptoms. Sclerotic focus seen involving the proximal aspect of the right femur, which is stable compared to 2019 and most likely to benign. If clinically appropriate, a whole-body nuclear medicine bone scan could be considered for further evaluation. Incidental note is made of: Appendectomy Presumed contraceptive ring at the vaginal apex Note: No significant discrepancy from the preliminary report. Dictated by: Kris Allen M.D. on 10/28/2020 at 8:07 Approved by: Kris Allen M.D. on 10/28/2020 at 8:12
[2020-10-27 21:36] LABS: Alanine Aminotransferase 19 IU/L (<35); Albumin 4.5 g/dL (3.5-5.0); Albumin Globulin Ratio 1.3 (1.0-2.8); Alkaline Phosphatase 47 U/L (38-126); Aspartate Aminotransferase 21 IU/L (14-36); BUN Creatinine Ratio 10.9 (6-22); Bilirubin Total 0.5 mg/dL (0.2-1.3); Blood Urea Nitrogen 7 mg/dL (7-17); Calcium 9.2 mg/dL (8.4-10.2); Carbon Dioxide 27 mmol/L (22-32); Chloride 105 mmol/L (98-107); Estimated Glomerular Filt Rate > 60.0 mL/min (>60); Globulin 3.5 g/dL (1.7-4.1); Glucose 86 mg/dL (70-100); HEMOLYSIS < 15 (0-50); Lipase 102 U/L (23-300); Potassium 3.6 mmol/L (3.4-5.1); Sodium 141 mmol/L (137-145)
[2020-10-27 21:38] LABS: Add Manual Diff / Slide Review NO; Basophils Absolute Auto 100 /uL (0-100); Basophils Percent Auto 1.1 % (0-2); Eosinophils Absolute Auto 100 /uL (0-450); Eosinophils Percent Auto 1.7 % (2-4); Hematocrit 42.1 % (36-46); Hemoglobin 13.8 g/dL (12.0-16.0); Lymphocytes Absolute Auto 2300 /uL (1100-4500); Mean Corpuscular HGB Conc 32.9 % (30-36); Mean Corpuscular Hemoglobin 28.2 PG (26-34); Mean Corpuscular Volume 85.9 fL (80-100); Monocytes Absolute Auto 300 /uL (0-900); Monocytes Percent Auto 5.3 % (3-14); Neutrophils Absolute Auto 2900 /uL (1500-7000); Neutrophils Percent Auto 50.9 % (50-75); Platelet Count 244 X10^3/uL (150-400); Red Blood Cell Count 4.89 X10^6/uL (4.0-5.2); White Blood Cell Count 5.6 X10^3/uL (4.5-11.0)
[2020-10-27] MEDS: ONDANSETRON 4 MG/2 ML INJ IV (21:39)
[2020-10-27] MEDS: HYDROMORPHONE 0.5 MG INJ IV (21:39)
[2020-10-27] MEDS: SODIUM CHLORIDE 0.9% 1,000 ML 1000 ML IV (21:39)
[2020-10-27 22:00] LABS: PTT Partial Thromboplastin Tim 35 SECONDS (26.4-36.2)
--- NOTE | 2020-10-27 23:27 | ED.ABDPAIN ---
HPI - Abdominal Pain General Chief Complaint: Abdominal Pain Stated Complaint: feels like appendicitis, but its removed Time Seen by Provider: 10/27/20 21:24 History of Present Illness HPI narrative: 30-year-old woman with no significant medical history presents complaining of abdominal pain with diarrhea that is been worse over the past 2-3 weeks with significant decrease in appetite and NS miss. She reports a 30 lb weight loss over the last month. She states she has had intermittent problems with diarrhea over the past 2 years. She was diagnosed with appendicitis in June of 2018 underwent appendectomy had recurrent pain very similar to the original appendicitis pain and was diagnosed with mesenteric adenitis. She is concerned that she may have that again. With the current diarrhea she reports no blood, no recent antibiotics, no travel in no significant exposures. She describes no fevers or chills and no vomiting. No chest pain dyspnea or palpitations. Today, the abdominal pain has been significantly worse with recurrent right mid abdominal pain green stools, increased nausea and increased overall concern. Related Data Home Medications Medication Instructions Recorded Confirmed phentermine 37.5 mg PO DAILY 02/20/19 02/20/19 tolterodine 02/20/19 Previous Rx's Medication Instructions Recorded cyclobenzaprine 10 mg PO TID PRN #30 tab 05/09/19 ketorolac 10 mg PO TID PRN #15 tab 05/09/19 lidocaine 1 patch TOP DAILY #15 each 05/09/19 benzonatate [Tessalon Perles] 100 mg PO TID PRN #12 cap 07/25/19 codeine-guaifenesin [Guaifenesin 10 ml PO Q4-6H PRN #237 ml 07/25/19 AC] doxycycline hyclate 100 mg PO BID #20 tab 06/25/20 Allergies Allergy/AdvReac Type Severity Reaction Status Date / Time No Known Drug Allergies Allergy Verified 06/25/20 21:52 Review of Systems Review of Systems Narrative: Remainder of review of systems including constitutional, ENT, cardiovascular, respiratory, GI, , musculoskeletal, skin, neurologic and psychiatric systems reviewed and are unremarkable except as noted in HPI. Patient History Medical History (Updated 10/27/20 @ 23:38 by Kelley Diaz MD) Healthy adult Migraine headache Surgical History Hx of appendectomy Social History Smoking Status: Never smoker Smoking Status: Never smoker alcohol intake frequency: 0-2 drinks per day Substance Use Type: does not use Exam Narrative Exam Narrative: General: Healthy appearing, in no acute distress. Able to give a complete and coherent history. Well-nourished well-developed HEENT: Moist mucous membranes, normal sclera with reactive pupils, Neck: supple Respiratory: Lungs are clear to auscultation, no wheezing no rales no rhonchi. Full and symmetrical air movement Cardiac: Regular rate and rhythm no murmurs no bruits Abdomen: Soft, mild tenderness in the left lower quadrant. No tenderness on the right side or epigastrium. Hyperactive bowel tones, No flank pain Skin: Warm and dry, no rashes Neurologic: Grossly neurologically intact with no obvious asymmetries or abnormalities Extremities: No trauma, well perfused Psych: Cooperative, appropriate insight and affect Initial Vital Signs Initial Vital Signs: Vital Signs Temperature 97.8 F 10/27/20 19:48 Pulse Rate 92 H 10/27/20 19:48 Respiratory Rate 16 10/27/20 19:48 Blood Pressure 131/93 H 10/27/20 19:48 Pulse Oximetry 100 10/27/20 19:48 Course Orders Ordered: ED Orders 10/27/20 21:15 Complete Blood Count AUTO DIFF Stat Comprehensive Metabolic Panel Stat Lipase Stat Partial Thromboplastin Time Stat Prothrombin Time INR Stat 10/27/20 21:33 CT abdomen pelvis w con Stat Discontinued Medications Hydromorphone HCl (Hydromorphone 0.5 Mg Inj) 0.5 mg IV Q15MIN PRN PRN Reason: Pain, Last Admin: 10/27/20 21:39 Dose: 0.5 mg Documented by: PANDA Sodium Chloride (Normal Saline 0.9%) 1,000 mls @ 1,000 mls/hr IV BOLUS ONE Stop: 10/27/20 22:32 Last Infusion: 10/27/20 22:36 Dose: 0 mls/hr Documented by: Admin: 10/27/20 21:39 Dose: 1,000 mls/hr Documented by: PANDA Ondansetron HCl (Ondansetron 4 Mg/2 Ml Inj) 4 mg IV NOW ONE Stop: 10/27/20 21:34 Last Admin: 10/27/20 21:39 Dose: 4 mg Documented by: PANDA Vital Signs Vital signs: Vital Signs - 8 hr 10/27/20 22:05 10/27/20 22:06 10/27/20 22:30 Temperature Pulse Rate 92 H 59 L 61 Respiratory Rate Blood Pressure 126/74 Pulse Oximetry 98 100 100 10/27/20 23:08 10/27/20 23:09 10/27/20 23:48 Temperature 98.0 F Pulse Rate 55 L 54 L 50 L Respiratory Rate 14 Blood Pressure 119/87 122/76 Pulse Oximetry 99 98 99 MDM - Abdominal Pain Medical Records Attestation: I reviewed the patient's medical records. Lab Data Attestation: I reviewed the patient's lab results. Result diagrams: 10/27/20 21:15 10/27/20 21:15 Labs: Lab Results 10/27/20 10/27/20 10/27/20 Range/Units 19:54 21:15 21:15 WBC 5.6 (4.5-11.0) X10^3/uL RBC 4.89 (4.0-5.2) X10^6/uL Hgb 13.8 (12.0-16.0) g/dL Hct 42.1 (36-46) % MCV 85.9 (80-100) fL MCH 28.2 (26-34) PG MCHC 32.9 (30-36) % RDW 13.0 (11.6-14.8) % Plt Count 244 (150-400) X10^3/uL Neut % (Auto) 50.9 (50-75) % Lymph % (Auto) 41.0 H (25-40) % [place] % (Auto) 5.3 (3-14) % Eos % (Auto) 1.7 L (2-4) % Baso % (Auto) 1.1 (0-2) % Neut # (Auto) 2900 (9108-6630) /uL Lymph # (Auto) 2300 (7232-0952) /uL [place] # (Auto) 300 (0-900) /uL Eos # (Auto) 100 (0-450) /uL Baso # (Auto) 100 (0-100) /uL PT 11.0 (10.1-12.7) SECONDS INR 1.0 (0.9-1.3) APTT 35 (26.4-36.2) SECONDS Sodium (137-145) mmol/L Potassium (3.4-5.1) mmol/L Chloride (98-107) mmol/L Carbon Dioxide (22-32) mmol/L BUN (7-17) mg/dL Creatinine (0.52-1.04) mg/dL Estimated GFR (>60) mL/min BUN/Creatinine Ratio (6-22) Glucose (70-100) mg/dL Calcium (8.4-10.2) mg/dL Total Bilirubin (0.2-1.3) mg/dL AST (14-36) IU/L ALT (<35) IU/L Alkaline Phosphatase (38-126) U/L Total Protein (6.3-8.2) g/dL Albumin (3.5-5.0) g/dL Globulin (1.7-4.1) g/dL Albumin/Globulin Ratio (1.0-2.8) Lipase (23-300) U/L Stl C. cayetanensis PCR Not detected (Not Detect) Stool Rotavirus (PCR) Not detected (Not Detect) Stool Adenovirus (PCR) Not detected (Not Detect) Stool Astrovirus (PCR) Not detected (Not Detect) Stool Cryptosporidium PCR Not detected (Not Detect) Stl E.coli Shiga Tox PCR Not detected (Not Detect) St Sh/Enteroin Ecoli PCR Not detected (Not Detect) Stool E coli O157 PCR Not Reportable Stl Enterotoxigenic E PCR Not detected (Not Detect) Stool EPEC (PCR) Not detected (Not Detect) Stl E. histolytica PCR Not detected (Not Detect) Stool Giardia Lamblia PCR Not detected (Not Detect) Stool Sapovirus (PCR) Not detected (Not Detect) Stl P. shigelloides PCR Not detected (Not Detect) St Y.enterocolitica PCR Not detected (Not Detect) Stool Vibrio (PCR) Not detected (Not Detect) Stl Vibrio cholerae PCR Not detected (Not Detect) Stl Enteroaggr Ecoli PCR Not detected (Not Detect) Stl Norovirus GI/GII PCR Not detected (Not Detect) Campylobacter (PCR) Not detected (Not Detect) C. difficile Tox (PCR) Not detected (Not Detect) Salmonella (PCR) Not detected (Not Detect) 10/27/20 Range/Units 21:15 WBC (4.5-11.0) X10^3/uL RBC (4.0-5.2) X10^6/uL Hgb (12.0-16.0) g/dL Hct (36-46) % MCV (80-100) fL MCH (26-34) PG MCHC (30-36) % RDW (11.6-14.8) % Plt Count (150-400) X10^3/uL Neut % (Auto) (50-75) % Lymph % (Auto) (25-40) % [place] % (Auto) (3-14) % Eos % (Auto) (2-4) % Baso % (Auto) (0-2) % Neut # (Auto) (5532-1733) /uL Lymph # (Auto) (8961-9166) /uL [place] # (Auto) (0-900) /uL Eos # (Auto) (0-450) /uL Baso # (Auto) (0-100) /uL PT (10.1-12.7) SECONDS INR (0.9-1.3) APTT (26.4-36.2) SECONDS Sodium 141 (137-145) mmol/L Potassium 3.6 (3.4-5.1) mmol/L Chloride 105 (98-107) mmol/L Carbon Dioxide 27 (22-32) mmol/L BUN 7 (7-17) mg/dL Creatinine 0.64 (0.52-1.04) mg/dL Estimated GFR > 60.0 (>60) mL/min BUN/Creatinine Ratio 10.9 (6-22) Glucose 86 (70-100) mg/dL Calcium 9.2 (8.4-10.2) mg/dL Total Bilirubin 0.5 (0.2-1.3) mg/dL AST 21 (14-36) IU/L ALT 19 (<35) IU/L Alkaline Phosphatase 47 (38-126) U/L Total Protein 8.0 (6.3-8.2) g/dL Albumin 4.5 (3.5-5.0) g/dL Globulin 3.5 (1.7-4.1) g/dL Albumin/Globulin Ratio 1.3 (1.0-2.8) Lipase 102 (23-300) U/L Stl C. cayetanensis PCR (Not Detect) Stool Rotavirus (PCR) (Not Detect) Stool Adenovirus (PCR) (Not Detect) Stool Astrovirus (PCR) (Not Detect) Stool Cryptosporidium PCR (Not Detect) Stl E.coli Shiga Tox PCR (Not Detect) St Sh/Enteroin Ecoli PCR (Not Detect) Stool E coli O157 PCR Stl Enterotoxigenic E PCR (Not Detect) Stool EPEC (PCR) (Not Detect) Stl E. histolytica PCR (Not Detect) Stool Giardia Lamblia PCR (Not Detect) Stool Sapovirus (PCR) (Not Detect) Stl P. shigelloides PCR (Not Detect) St Y.enterocolitica PCR (Not Detect) Stool Vibrio (PCR) (Not Detect) Stl Vibrio cholerae PCR (Not Detect) Stl Enteroaggr Ecoli PCR (Not Detect) Stl Norovirus GI/GII PCR (Not Detect) Campylobacter (PCR) (Not Detect) C. difficile Tox (PCR) (Not Detect) Salmonella (PCR) (Not Detect) Point of care testing: Point of Care Testing Test Results Negative Urine Dip Bedside Urine Glucose Negative Bedside Urine Bilirubin - Negative Bedside Urine Ketone - Negative Urine Specific [place] 1.015 Bedside Urine Occult Blood - Negative Bedside Urine pH 6.0 Bedside Urine Protein - Negative Bedside Urine Urobilinogen - Negative Bedside Urine Nitrite - Negative Bedside Urine Leukocytes - Negative Esterase Imaging Data CT scan - abdomen/pelvis: Radiologist's Impression: No acute findings. Indeterminate 1.1 cm sclerotic lesion in the right proximal femoral diaphysis Jacek Galvin MD ECG Data Attestation: I personally reviewed and interpreted this ECG as follows: Interpretation: Sinus rhythm at a rate of 62 Normal interval, normal axis No acute ischemic changes MDM Narrative Medical decision making narrative: 30-year-old woman with significant increased abdominal pain today, a month of diarrhea with 20 lb weight loss and over 2 years of intermittent abdominal pain. Workup is reassuring. No significant electrolyte abnormalities dehydration or renal dysfunction. No Campylobacter C diff were seminal a is detected in the stool sample. No evidence of significant colitis, obstruction or other significant pathology on CT scan. At this point, it is safe for her to try [id number] anti diarrheal medications to see if it slows the diarrhea and allows her to retain some of her calories. She also needs to follow-up with her primary care physician and may need referral to Gastroenterology for chronic diarrhea. She is safe for home discharge. Discharge Plan Departure Patient Disposition: Home Clinical Impression: Abdominal pain Qualifiers: Abdominal location: generalized Qualified Code(s): R10.84 - Generalized abdominal pain Diarrhea Qualifiers: Diarrhea type: unspecified type Qualified Code(s): R19.7 - Diarrhea, unspecified Instructions: DI for Abdominal Pain-Adult, DI for Diarrhea and Traveler's Diarrhea -- Adult Activity Restrictions/Additional Instructions: Thank you for coming in today Your lab work was very reassuring. There is no evidence of acute infection. The CT scan of your abdomen does not show acute findings with your gallbladder nor does it show significant signs of infectious colitis or swelling through your bowel wall. The stool sample will take another day or 2 before results are available. This is testing for Clostridium difficile as well as other viral causes for diarrhea. It would be okay to try [id number] antidiarrhea medications for the next couple of days. You need to follow-up with your primary care physician regarding the continued diarrhea, abdominal pain and weight loss. It may be time for referral to a customer success intern. Prescriptions: No Action cyclobenzaprine 10 mg tablet 10 mg PO TID PRN (Reason: muscle spasm) Qty: 30 RF: 0 lidocaine 5 % adhesive patch,medicated 1 patch TOP DAILY Qty: 15 RF: 0 ketorolac 10 mg tablet 10 mg PO TID PRN (Reason: pain) Qty: 15 RF: 0 benzonatate [Tessalon Perles] 100 mg capsule 100 mg PO TID PRN (Reason: cough) Qty: 12 RF: 0 codeine-guaifenesin [Guaifenesin AC] 10-100 mg/5 mL liquid 10 ml PO Q4-6H PRN (Reason: cough) Qty: 237 RF: 0 doxycycline hyclate 100 mg tablet 100 mg PO BID Qty: 20 RF: 0 phentermine 37.5 mg Tablet 37.5 mg PO DAILY RF: 0 tolterodine 4 mg capsule,extended release 24hr RF: 0
[2020-10-28 01:05] LABS: Adenovirus F 40/41 Not Detected (Not Detect); Astrovirus Not Detected (Not Detect); Campylobacter Not Detected (Not Detect); Clostridium difficile toxin AB Not Detected (Not Detect); Cryptosporidium Not Detected (Not Detect); Cyclospora cayetanensis Not Detected (Not Detect); Entamoeba histolytica Not Detected (Not Detect); Enteroaggregative E.coli Not Detected (Not Detect); Enteropathogenic E.coli Not Detected (Not Detect); Enterotoxigenic E.coli It/st Not Detected (Not Detect); Giardia lamblia Not Detected (Not Detect); Norovirus GI/GII Not Detected (Not Detect); Plesiomonsa shigelloides Not Detected (Not Detect); Rotavirus A Not Detected (Not Detect); Salmonella Not Detected (Not Detect); Sapovirus Not Detected (Not Detect); Shiga-like toxin-prod E.coli Not Detected (Not Detect); Shigella/Enteroinvasive E.coli Not Detected (Not Detect); Vibrio Not Detected (Not Detect); Vibrio cholerae Not Detected (Not Detect); Yersinia enterocolitica Not Detected (Not Detect)
== END 2020-10-27 23:49 | disposition home or self-care (01) ==
PROVIDERS: Emergency Provider Emergency Medicine
DX: R10.84 Generalized abdominal pain (principal); R19.7 Diarrhea, unspecified
CPT/HCPCS: 36415; 74177; 80053; 81003; 81025; 83690; 85025; 85610; 85730; 87507; 93005; 96361; 96374; 96375; 99284; J1170; J2405; Q9967

== ENCOUNTER 2020-12-20 09:52 | Emergency (ER) | payer OTHER, SELFPAY ==
[2020-12-20 09:58] VITALS: BP 119/80; PULSE 90; RESP 18; TEMP 36.9; O2SAT 99; BMI 28.3
--- NOTE | 2020-12-20 10:22 | ED_ITS ---
HPI - Headache General Chief Complaint: Headache Stated Complaint: Severe Headache Time Seen by Provider: 12/20/20 10:07 Source: patient Mode of arrival: Ambulatory Limitations: no limitations History of Present Illness HPI Narrative: Patient is a 30-year-old female who presents with on going headache which lasted for about the last 15 days. She says this started after her 1st COVID vaccine and has not quite gone away. She is sensitive to light she has been vomiting off and on. She has taken Imitrex naproxen and Tylenol out any relief. She went to bed last night with a woke up again with it it just overall is not going away. She states it is in the front of her head behind her eyes. She is unable to focus at work. Complaint: headache Onset (ago): day(s) () Location: frontal Severity: moderate Quality: sharp Related Data Home Medications Medication Instructions Recorded Confirmed naproxen 500 mg PO BID PRN 12/20/20 12/20/20 ondansetron HCl 8 mg PO TID PRN 12/20/20 12/20/20 sumatriptan succinate 25 mg PO TID PRN 12/20/20 12/20/20 Allergies Allergy/AdvReac Type Severity Reaction Status Date / Time No Known Drug Allergies Allergy Verified 12/20/20 10:01 Review of Systems Review of Systems Narrative: GENERAL: Denies chills, fatigue, malaise, fever, sweats, travel HEENT: + her light sensitivity Denies sinus pain, ear pain, sore throat, difficulty swallowing, neck pain RESPIRATORY: Denies dyspnea, cough, wheezing, hemoptysis, sputum. CARDIOVASCULAR: Denies chest pain, palpitations, orthopnea, edema GASTROINTESTINAL: Denies nausea, vomiting, abdominal pain, diarrhea, constipation, melena. : Denies dysuria, frequency, incontinence, hematuria, urinary retention, flank pain. MUSCULOSKELETAL: Denies weakness, joint pain, or bony pain SKIN: No rash, no erythema, no pruritus NEUROLOGIC: + headache, Denies weakness, dizziness, numbness, change in speech, confusion PSYCHIATRIC: No concerning psychosocial issues. 12 point review of systems is negative except for those stated above and HPI Patient History Medical History (Updated 12/20/20 @ 11:47 by Katherine Pritchett DO) Healthy adult Migraine headache Surgical History Hx of appendectomy Social History Smoking Status: Never smoker Smoking Status: Never smoker alcohol intake frequency: 0-2 drinks per day Substance Use Type: does not use Exam Initial Vital Signs Initial Vital Signs: Vital Signs Temperature 98.5 F 12/20/20 09:58 Pulse Rate 90 12/20/20 09:58 Respiratory Rate 18 12/20/20 09:58 Blood Pressure 119/80 12/20/20 09:58 Pulse Oximetry 99 12/20/20 09:58 GENERAL: Young 30-year-old female in dark room appears to not feel well HEENT: Head atraumatic,EOMI, pupils reactive, face symmetric, moist mucous membranes CARDIOVASCULAR: Regular rate and rhythm without murmurs, rubs or gallops. RESPIRATORY: Breath sounds equal bilaterally, no wheezes rales or rhonchi. ABDOMEN: Soft, nontender. Normoactive bowel sounds all 4 quadrants. No guarding or rebound. EXTREMITIES: Normal range of motion, no clubbing or edema. Neurovascularly intact NEUROLOGICAL: Alert and oriented x4.Normal gait and speech. Cranial nerves II through XII grossly intact. Good ceuasm-vm-pwax, good [id number], strength equal bilaterally, no dysarthria or aphasia, sensation in tact to soft touch bilaterally, no visual changes, no facial droop SKIN: Warm, dry, no laceration, no petechiae, no rashes or lesions. Scores NIH Stroke Scale Level of Conciousness: Alert, keenly responsive Ask month/age: Answers both questions correctly. Open/close eyes, close hand: Performs both tasks correctly Best gaze horizontal: Normal Visual urena: No visual loss Facial palsy: Normal symetrical movement Left arm drift: No drift for full 10 sec Right arm drift: No drift for full 10 sec Left leg drift: No drift for full 5 sec Right leg drift: No drift for full 5 sec Limb ataxia: Absent Sensory on face/arms/legs: Normal, no sensory loss Best language: No aphasia, normal Dysarthria: Normal Extinction or inattention: No abnormality Total NIH Stroke scale score: 0 Course Orders Ordered: ED Orders 12/20/20 10:30 CT head/brain wo con Stat 12/20/20 11:32 Basic Metabolic Panel Stat Complete Blood Count AUTO DIFF Stat Discontinued Medications Dexamethasone (Dexamethasone 10 Mg/Ml Vial) 10 mg IV NOW ONE Stop: 12/20/20 10:28 Last Admin: 12/20/20 10:57 Dose: 10 mg Documented by: DEBRA Diphenhydramine HCl (Diphenhydramine 50 Mg/Ml Vial) 25 mg IV NOW ONE Stop: 12/20/20 10:28 Last Admin: 12/20/20 10:58 Dose: 25 mg Documented by: DEBRA Sodium Chloride (Normal Saline 0.9%) 1,000 mls @ 1,000 mls/hr IV BOLUS ONE Stop: 12/20/20 11:26 Last Infusion: 12/20/20 11:58 Dose: 0 mls/hr Documented by: Admin: 12/20/20 10:58 Dose: 1,000 mls/hr Documented by: DEBRA Ketorolac Tromethamine (Ketorolac 30 Mg/Ml Vial) 15 mg IV NOW ONE Stop: 12/20/20 10:28 Last Admin: 12/20/20 10:57 Dose: 15 mg Documented by: DEBRA Prochlorperazine (Prochlorperazine 10 Mg/2 Ml Vial) 10 mg IV NOW ONE Stop: 12/20/20 10:28 Last Admin: 12/20/20 10:58 Dose: 10 mg Documented by: DEBRA Vital Signs Vital signs: Vital Signs - 8 hr 12/20/20 11:03 12/20/20 11:04 12/20/20 12:00 Pulse Rate 75 76 64 Respiratory Rate 14 Blood Pressure 121/88 94/50 L Pulse Oximetry 100 100 99 12/20/20 12:04 Pulse Rate Respiratory Rate Blood Pressure 106/68 Pulse Oximetry MDM - Headache Lab Data Attestation: I reviewed the patient's lab results. Result diagrams: 12/20/20 11:32 12/20/20 11:32 Labs: Lab Results 12/20/20 12/20/20 Range/Units 11:32 11:32 WBC 5.3 (4.5-11.0) X10^3/uL RBC 4.26 (4.0-5.2) X10^6/uL Hgb 12.1 (12.0-16.0) g/dL Hct 37.1 (36-46) % MCV 87.1 (80-100) fL MCH 28.5 (26-34) PG MCHC 32.7 (30-36) % RDW 13.2 (11.6-14.8) % Plt Count 263 (150-400) X10^3/uL Neut % (Auto) 58.6 (50-75) % Lymph % (Auto) 31.3 (25-40) % [place] % (Auto) 6.2 (3-14) % Eos % (Auto) 2.9 (2-4) % Baso % (Auto) 1.0 (0-2) % Neut # (Auto) 3100 (1421-8994) /uL Lymph # (Auto) 1700 (6533-7046) /uL [place] # (Auto) 300 (0-900) /uL Eos # (Auto) 200 (0-450) /uL Baso # (Auto) 100 (0-100) /uL Sodium 138 (137-145) mmol/L Potassium 4.0 (3.4-5.1) mmol/L Chloride 109 H (98-107) mmol/L Carbon Dioxide 25 (22-32) mmol/L BUN 8 (7-17) mg/dL Creatinine 0.72 (0.52-1.04) mg/dL Estimated GFR > 60.0 (>60) mL/min BUN/Creatinine Ratio 11.1 (6-22) Glucose 89 (70-100) mg/dL Calcium 8.4 (8.4-10.2) mg/dL Point of Care Testing Test Results Negative Imaging Data CT scan - head: Radiologist's Impression: PROCEDURE: CT HEAD/BRAIN WO CON INDICATIONS: Persistent headache for 10 days TECHNIQUE: Noncontrast 4.5 mm thick angled axial sections acquired from the foramen magnum to the vertex, with coronal and sagittal reformats. For radiation dose reduction, the following was used: automated exposure control, adjustment of mA and/or kV according to patient size. COMPARISON: None. FINDINGS: Image quality: Excellent. CSF spaces: Basal cisterns are patent. No extra-axial fluid collections. Ventricles are normal in size and shape. Brain: No midline shift. No intracranial masses or hemorrhage. Vance-white matter interface is normal. Skull and face: Calvarium and visualized facial bones are intact, without suspicious lesions. Sinuses: Visualized sinuses and mastoids are clear. IMPRESSION: No acute intracranial disease process. Dictated by: Lili Linares MD, PhD on 12/20/2020 at 10:47 MDM Narrative Medical decision making narrative: Patient has been having ongoing headache for 15 days. It is not going away. She has no focal deficits but at this time do recommend CT head. Patient is overall feeling better after migraine cocktail. No neurologic deficits head CT is negative. Discharge Plan Departure Patient Disposition: Home Clinical Impression: Migraine Instructions: DI for Migraine Activity Restrictions/Additional Instructions: *You have been diagnosed with migraine headache *What to do: At this time your head CT and blood work were overall reassuring. Recommend rest and hydration. Hopefully night here headache continues to improve. *Continue to take medications as directed *Follow up with your primary care provider in 2-3 days *Return to ER if you should have worsening headache, persistent vomiting, numbness tingling or weakness. [or] any new, worsening or concerning symptoms Prescriptions: No Action ondansetron HCl 8 mg tablet 8 mg PO TID PRN (Reason: Nausea) RF: 0 sumatriptan succinate 25 mg tablet 25 mg PO TID PRN (Reason: Migraine Headache) RF: 0 naproxen 500 mg tablet 500 mg PO BID PRN (Reason: Headache) RF: 0
--- NOTE | 2020-12-20 10:30 | DI.CT.S_ITS ---
PROCEDURE: CT HEAD/BRAIN WO CON INDICATIONS: Persistent headache for 10 days TECHNIQUE: Noncontrast 4.5 mm thick angled axial sections acquired from the foramen magnum to the vertex, with coronal and sagittal reformats. For radiation dose reduction, the following was used: automated exposure control, adjustment of mA and/or kV according to patient size. COMPARISON: None. FINDINGS: Image quality: Excellent. CSF spaces: Basal cisterns are patent. No extra-axial fluid collections. Ventricles are normal in size and shape. Brain: No midline shift. No intracranial masses or hemorrhage. Vance-white matter interface is normal. Skull and face: Calvarium and visualized facial bones are intact, without suspicious lesions. Sinuses: Visualized sinuses and mastoids are clear. IMPRESSION: No acute intracranial disease process. Dictated by: Lili Linares MD, PhD on 12/20/2020 at 10:47 Approved by: Lili Linares MD, PhD on 12/20/2020 at 11:02
[2020-12-20] MEDS: KETOROLAC 30 MG/ML VIAL 15 MG IV (10:57)
[2020-12-20] MEDS: DEXAMETHASONE 10 MG/ML VIAL IV (10:57)
[2020-12-20] MEDS: PROCHLORPERAZINE 10 MG/2 ML VIAL IV (10:58)
[2020-12-20] MEDS: diphenhydrAMINE 50 MG/ML VIAL 25 MG IV (10:58)
[2020-12-20] MEDS: SODIUM CHLORIDE 0.9% 1,000 ML 1000 ML IV (10:58)
[2020-12-20 11:03] VITALS: PULSE 75; O2SAT 100
[2020-12-20 11:04] VITALS: BP 121/88; PULSE 76; O2SAT 100
[2020-12-20 11:40] LABS: Add Manual Diff / Slide Review NO; Basophils Absolute Auto 100 /uL (0-100); Eosinophils Absolute Auto 200 /uL (0-450); Eosinophils Percent Auto 2.9 % (2-4); Hematocrit 37.1 % (36-46); Hemoglobin 12.1 g/dL (12.0-16.0); Lymphocytes Absolute Auto 1700 /uL (1100-4500); Lymphocytes Percent Auto 31.3 % (25-40); Mean Corpuscular HGB Conc 32.7 % (30-36); Mean Corpuscular Hemoglobin 28.5 PG (26-34); Mean Corpuscular Volume 87.1 fL (80-100); Monocytes Absolute Auto 300 /uL (0-900); Monocytes Percent Auto 6.2 % (3-14); Neutrophils Absolute Auto 3100 /uL (1500-7000); Neutrophils Percent Auto 58.6 % (50-75); Platelet Count 263 X10^3/uL (150-400); Red Blood Cell Count 4.26 X10^6/uL (4.0-5.2); Red Cell Distribution Width 13.2 % (11.6-14.8); White Blood Cell Count 5.3 X10^3/uL (4.5-11.0)
[2020-12-20 11:52] LABS: BUN Creatinine Ratio 11.1 (6-22); Blood Urea Nitrogen 8 mg/dL (7-17); Calcium 8.4 mg/dL (8.4-10.2); Carbon Dioxide 25 mmol/L (22-32); Chloride 109 mmol/L (98-107); Estimated Glomerular Filt Rate > 60.0 mL/min (>60); Glucose 89 mg/dL (70-100); HEMOLYSIS < 15 (0-50); Sodium 138 mmol/L (137-145)
[2020-12-20 12:00] VITALS: BP 94/50; PULSE 64; PULSE 75; RESP 14; O2SAT 99
[2020-12-20 12:04] VITALS: BP 106/68
== END 2020-12-20 12:06 | disposition home or self-care (01) ==
PROVIDERS: Emergency Provider Emergency Medicine
DX: G43.909 Migraine, unspecified, not intractable, without status migrainosus (principal); R11.10 Vomiting, unspecified
CPT/HCPCS: 36415; 70450; 80048; 81025; 85025; 96361; 96374; 96375; 99284; J0780; J1100; J1200; J1885

== ENCOUNTER 2021-06-30 17:58 | Emergency (ER) | payer OTHER, SELFPAY ==
[2021-06-30 18:02] VITALS: BP 123/66; PULSE 119; RESP 18; TEMP 36.9; O2SAT 97
[2021-06-30 18:26] LABS: COVID19 -Nasal RAPID Negative (Negative)
--- NOTE | 2021-06-30 19:53 | ED_ITS ---
HPI - URI/Sore Throat General Chief Complaint: Fever Stated Complaint: fever difficulty breathing, sore throat, aches Time Seen by Provider: 06/30/21 19:46 Source: patient Mode of arrival: Ambulatory History of Present Illness HPI Narrative: Patient is a 31-year-old female who had plastic surgery of [place] alejandre and linda on June 08 T presenting day waited a sore throat and fever. Sore throat started yesterday she developed a fever 102 this afternoon body ache for the chills. She denies any abdominal pain no painful or frequent urination she has been keeping close watch on her incision with. She really feels like this is upper respiratory illness sore throat. She denies any shortness of breath no chest pain or palpitations. Related Data Home Medications Medication Instructions Recorded Confirmed naproxen 500 mg tablet 500 mg PO BID PRN 12/20/20 12/20/20 ondansetron HCl 8 mg tablet 8 mg PO TID PRN 12/20/20 12/20/20 sumatriptan succinate 25 mg tablet 25 mg PO TID PRN 12/20/20 12/20/20 Previous Rx's Medication Instructions Recorded amoxicillin 500 mg capsule 500 mg PO BID #20 cap 06/30/21 Allergies Allergy/AdvReac Type Severity Reaction Status Date / Time No Known Drug Allergies Allergy Verified 12/20/20 10:01 Review of Systems Review of Systems Narrative: GENERAL: Denies chills, fatigue, malaise, fever, sweats, travel HEENT: Sore throat RESPIRATORY: Denies dyspnea, cough, wheezing, hemoptysis, sputum. CARDIOVASCULAR: Denies chest pain, palpitations, orthopnea, edema GASTROINTESTINAL: Recent surgery. Denies nausea, vomiting, abdominal pain, diarrhea, constipation, melena. : Denies dysuria, frequency, incontinence, hematuria, urinary retention, flank pain. MUSCULOSKELETAL: Denies weakness, joint pain, or bony pain SKIN: No rash, no erythema, no pruritus NEUROLOGIC: Denies weakness, dizziness, headache, numbness, change in speech, confusion PSYCHIATRIC: No concerning psychosocial issues. 12 point review of systems is negative except for those stated above and HPI Patient History Medical History (Updated 06/30/21 @ 20:32 by Katherine Pritchett DO) Healthy adult Migraine headache Surgical History Hx of appendectomy Social History Smoking Status: Never smoker Smoking Status: Never smoker alcohol intake frequency: 0-2 drinks per day Substance Use Type: does not use Exam Initial Vital Signs Initial Vital Signs: Vital Signs Temperature 98.4 F 06/30/21 18:02 Pulse Rate 119 H 06/30/21 18:02 Respiratory Rate 18 06/30/21 18:02 Blood Pressure 123/66 06/30/21 18:02 Pulse Oximetry 97 06/30/21 18:02 GENERAL: Well-appearing, well-nourished and in no acute distress. HEENT: Head normocephalic, atraumatic, EOMI, pupils reactive, face symmetric PHARYNX: A bilateral tonsillar erythema with exudate no uvular swelling or deviation cervical lymphadenopathy bilateral no meningeal signs no airway compromise NECK: Supple, full range of motion, no JVD, cervical anterior lymphadenopathy CARDIOVASCULAR: Regular rate and rhythm without murmurs, rubs or gallops. RESPIRATORY: Breath sounds equal bilaterally, no wheezes rales or rhonchi. ABDOMEN: Incision site noted around umbilical area no erythema or sign of infection abdomen does have postoperative changes of contusion, but no significant tenderness EXTREMITIES: Normal range of motion, no clubbing or edema. NEUROLOGICAL: Cranial nerves II through XII grossly intact. Normal gait and speech. SKIN: Warm, dry, no petechiae, no rashes or lesions. Course Orders Ordered: ED Orders 06/30/21 18:09 COVID19 -Nasal swab/Pre-Proc Stat 06/30/21 19:39 Strep Screen Stat 06/30/21 20:15 Monotest Stat Discontinued Medications Amoxicillin (Amoxicillin 250 Mg Prepack) 1 bottle MISC SEEINSTR ONE Stop: 06/30/21 20:33 Last Admin: 06/30/21 20:39 Dose: 1 bottle Documented by: [email or web address] Vital Signs Vital signs: Vital Signs - 8 hr 06/30/21 18:02 06/30/21 20:43 Temperature 98.4 F Pulse Rate 119 H 93 H Respiratory Rate 18 Blood Pressure 123/66 103/63 Pulse Oximetry 97 97 MDM - URI/Sore Throat Lab Data Labs: Lab Results 06/30/21 06/30/21 Range/Units 18:09 20:15 SARS-CoV-2 (PCR) Negative (Negative) Monoscreen Negative (Negative) Point of Care Testing Rapid Strep A Negative MDM Narrative Medical decision making narrative: Patient has upper respiratory like symptoms sore throat cervical lymphadenopathy she clearly has exudate of tonsils and fever. She did recently have abdominal plasty however she is not having any abdominal pain. Incision does not look infected. She feels like that is well controlled. At this time she clinically appears to have pharyngitis probable strep COVID is negative however rapid strep is also negative backup culture is sent and mono test is negative. Will start her on amoxicillin. I have discussed with her if she has any continued fever worsening pain or any kind of abdominal pain then she needs return to the ED. At this time she understands and agrees. Also agrees with upper respiratory infection. At this time I do not have any suspicion for pulmonary embolism or complication from surgery. Discharge Plan Departure Patient Disposition: Home Clinical Impression: Pharyngitis, acute Instructions: Strep Throat Activity Restrictions/Additional Instructions: *You have been diagnosed with pharyngitis *What to do: He probably had strep. Backup strep will 1 days come back in a few days. [place] and COVID testing are negative Days follow straight surgical postoperative instructions *Continue to take medications as directed Amoxicillin 500 mg twice a day for 10 days--> SENT TO [facility] *Follow up with your primary care provider in 2-3 days *Return to ER if you should have increasing throat pain, difficulty breathing, abdominal pain, or any new, worsening or concerning symptoms Prescriptions: New amoxicillin 500 mg capsule 500 mg PO BID Qty: 20 0RF No Action ondansetron HCl 8 mg tablet 8 mg PO TID PRN (Reason: Nausea) 0RF sumatriptan succinate 25 mg tablet 25 mg PO TID PRN (Reason: Migraine Headache) 0RF naproxen 500 mg tablet 500 mg PO BID PRN (Reason: Headache) 0RF Referrals: Miscellaneous,Doctor, MD [Primary Care Provider] - Stand Alone Forms: Work Release Note
[2021-06-30 20:27] LABS: Monotest Negative (Negative)
[2021-06-30] MEDS: AMOXICILLIN 250 MG PREPACK 1 BOTTLE MISC (20:39)
[2021-06-30 20:43] VITALS: BP 103/63; PULSE 93; O2SAT 97
== END 2021-06-30 20:44 | disposition home or self-care (01) ==
PROVIDERS: Emergency Medicine; Emergency Provider Emergency Medicine
DX: J02.9 Acute pharyngitis, unspecified (principal); Z20.822 Contact with and (suspected) exposure to COVID-19
CPT/HCPCS: 36415; 86318; 87081; 87147; 87635; 87880; 99283; C9803

== ENCOUNTER 2021-08-05 19:52 | Emergency (ER) | payer OTHER, SELFPAY ==
[2021-08-05 20:53] VITALS: BP 114/70; PULSE 72; RESP 16; TEMP 36.8; O2SAT 100; BMI 24.4
[2021-08-05] MEDS: ONDANSETRON 4 MG ODT SL (21:06)
[2021-08-05 21:23] LABS: COVID19 -Nasal RAPID Negative (Negative)
[2021-08-05 23:12] LABS: Pregnancy Test Urine Negative (Negative)
[2021-08-05 23:40] LABS: RBC Urine None Seen (0-5/HPF); Squamous Epithelial Cell Urine 1-5 /HPF (0-5/HPF); WBC Urine 1-5/HPF (0-5/HPF)
[2021-08-05 23:41] LABS: Bacteria Urine Many (>30); Culture Indicated Urine Specimen Cultured
--- NOTE | 2021-08-05 23:55 | ED_ITS ---
HPI - Nausea/Vomiting/Diarrhea General Chief complaint: Nausea/Vomiting/Diarrhea Stated complaint: STOMACH PAINS Time Seen by Provider: 08/05/21 23:02 Source: patient Mode of arrival: Ambulatory History of Present Illness HPI Narrative: Patient is a 31-year-old female here for evaluation of stomach cramping, diarrhea, nausea and vomiting. Symptoms been going on for the past day. Her child was sick over the weekend with very similar symptoms. She has not tried anything for her symptoms prior to arrival. Related Data Home Medications Medication Instructions Recorded Confirmed naproxen 500 mg tablet 500 mg PO BID PRN 12/20/20 12/20/20 ondansetron HCl 8 mg tablet 8 mg PO TID PRN 12/20/20 12/20/20 sumatriptan succinate 25 mg tablet 25 mg PO TID PRN 12/20/20 12/20/20 Previous Rx's Medication Instructions Recorded amoxicillin 500 mg capsule 500 mg PO BID #20 cap 06/30/21 Allergies Allergy/AdvReac Type Severity Reaction Status Date / Time No Known Drug Allergies Allergy Verified 12/20/20 10:01 Review of Systems Constitutional Constitutional: Denies fever(s) Cardiovascular Cardiovascular: Reports system reviewed and no additional complaints, except as documented Respiratory Respiratory: Reports system reviewed and no additional complaints, except as documented Gastrointestinal Gastrointestinal: Reports as per HPI and Reports system reviewed and no additional complaints, except as documented Genitourinary Genitourinary: Reports system reviewed and no additional complaints, except as documented and Reports as per HPI Integumentary/Breasts Skin/Breast: Reports system reviewed and no additional complaints, except as documented Hematologic/Lymphatic On Anticoagulants: No Patient History Medical History Healthy adult Migraine headache Surgical History Hx of appendectomy Social History Smoking Status: Never smoker Smoking Status: Never smoker alcohol intake frequency: 0-2 drinks per day Substance Use Type: does not use Exam Initial Vital Signs Initial Vital Signs: Vital Signs Temperature 98.3 F 08/05/21 20:53 Pulse Rate 72 08/05/21 20:53 Respiratory Rate 16 08/05/21 20:53 Blood Pressure 114/70 08/05/21 20:53 Pulse Oximetry 100 08/05/21 20:53 HENMT Head: normal to inspection and normocephalic Resp Effort & Inspection: normal respiratory effort Auscultation: clear to auscultation bilaterally Cardio Rate: regular rate Rhythm: regular rhythm GI Palpation: soft, No firm and No tender Other: Patient is wearing an abdominal binder because she has had a tummy tuck and liposuction approximately 1 month ago. Skin General: no rashes or lesions noted Neuro General: patient alert, patient awake and moves all extremities Extrem General: normal to inspection and capillary refill normal Course Orders Ordered: ED Orders 08/05/21 21:00 COVID19 -Nasal swab/Pre-Proc Stat 08/05/21 22:22 Test Urine Stat Urine Culture Stat Urine Microscopic Stat Discontinued Medications Ondansetron HCl (Ondansetron 4 Mg Odt) 4 mg SL NOW ONE Stop: 08/05/21 21:05 Last Admin: 08/05/21 21:06 Dose: 4 mg Documented by: TRISH Ondansetron HCl (Ondansetron 4 Mg Odt Prepack) 1 bottle MISC SEEINSTR ONE Stop: 08/06/21 00:22 Last Admin: 08/06/21 00:28 Dose: 1 bottle Documented by: JOVI Vital Signs Vital signs: Vital Signs - 8 hr 08/05/21 20:53 08/06/21 00:30 Temperature 98.3 F 97.6 F Pulse Rate 72 57 L Respiratory Rate 16 18 Blood Pressure 114/70 122/73 Pulse Oximetry 100 100 MDM - Nausea/Vomiting/Diarrhea Lab Data Labs: Lab Results 08/05/21 08/05/21 08/05/21 Range/Units 21:00 22:22 22:22 Urine RBC None seen (0-5/HPF) Urine WBC 1-5/hpf (0-5/HPF) Ur Squamous Epith Cells 1-5 /hpf (0-5/HPF) Urine Bacteria Many (>30) H (None) Ur Culture Indicated? Specimen cultured Urine Test Negative (Negative) SARS-CoV-2 (PCR) Negative (Negative) Urine Dip Bedside Urine Glucose Negative Bedside Urine Bilirubin - Negative Bedside Urine Ketone - Negative Urine Specific [place] 1.020 Bedside Urine Occult Blood - Negative Bedside Urine pH 6.0 Bedside Urine Protein - Negative Bedside Urine Urobilinogen - Negative Bedside Urine Nitrite - Negative Bedside Urine Leukocytes ++ 125 Esterase MDM Narrative Medical decision making narrative: Patient has a relatively benign exam. Unremarkable vital signs. Was able to tolerate fluids after Zofran. No indication for IV fluids currently. No indication for antibiotics. No indication for lab testing. No indication for radiologic studies. Sent home with [facility]. Encourage fluid intake. She was given return precautions and follow-up instructions. She expressed understanding and agreement. Discharge Plan Departure Patient Disposition: Home Clinical Impression: Nausea, Diarrhea Instructions: Diarrhea, DI for Nausea -- Adult Activity Restrictions/Additional Instructions: Be sure to increase your fluid intake. Use the nausea medication as needed. Contact your primary doctor for a follow-up. Return to the emergency department for any new or worsening symptoms Prescriptions: No Action ondansetron HCl 8 mg tablet 8 mg PO TID PRN (Reason: Nausea) 0RF sumatriptan succinate 25 mg tablet 25 mg PO TID PRN (Reason: Migraine Headache) 0RF naproxen 500 mg tablet 500 mg PO BID PRN (Reason: Headache) 0RF amoxicillin 500 mg capsule 500 mg PO BID Qty: 20 0RF Stand Alone Forms: Work Release Note
[2021-08-06] MEDS: ONDANSETRON 4 MG ODT PREPACK 1 BOTTLE MISC (00:28)
[2021-08-06 00:30] VITALS: BP 122/73; PULSE 57; RESP 18; TEMP 36.4; O2SAT 100
== END 2021-08-06 00:33 | disposition home or self-care (01) ==
PROVIDERS: Emergency Provider Emergency Medicine
DX: R10.9 Unspecified abdominal pain (principal); R11.2 Nausea with vomiting, unspecified; R19.7 Diarrhea, unspecified; Z20.822 Contact with and (suspected) exposure to COVID-19
CPT/HCPCS: 81003; 81015; 81025; 87086; 87635; 99283; C9803